=== PATIENT | female | born 1960 | race African-American/Black ===

== ENCOUNTER 2016-06-30 03:46 | Emergency (ER) | payer MEDICARE, OTHER ==
[~2016-06-30 03:46] MED LIST: ASMANEX200 INH; ATARAX50B PO; ATV1 PO; AZACTAM1 IM; AZACTAM1 IV; BEN25 PO; BIO-FREEZE TOP; BIOTIN10 MG PO; BIOTIN5 MG PO; BROVANA15 MCG INH; CARD120 PO; CARD30 PO; CARD60 PO; CENTRUM PO; CIP5 PO; DILT-XR120 MG PO; DULERA 200 MCG/13 GM INH; FLONASE NAS; FLORASTOR250 MG PO; FLOVENT DISK50 MCG INH; FLOVENT110 INH; FLOVENT110 PO; FOLIC ACID800 MCG PO; FOLIC PO; HARD NAILS PO; HYDROCODONE PO; IBU400 PO; IBUDONE1 TA1 PO; IMOD PO; IRON325 MG PO; LEVAQUIN750 MG PO; LIDODERM PATCH T; LIDODERM T; LIDODERM TOP; LIQUID TEARS OPH; MAGNESIUM 500MG OTC PO; MAGNESIUM PO; MEP50TAB PO; METANX PO; MULTIPLE VIT PO; MULTIVIT/MIN PO; MULTIVITAMI1 PO; NEUR300 PO; NEUR600 PO; ORAZINC110 MG PO; PHENERGAN25 MG/ML IV; PR25 PO; PROAIR HFA INH; PROBIOTIC PO; PULRESP.5 INH; SALMON OIL PO; SAMOLINIC PO; SOMATAB PO; SWEEN PO; SWEEN TOP; SYSTAN1 OPH; SYSTANE EYE OPH; SYSTANE OPH; TEARS NATURA OPH; VANCO1P IV; VICOPROFEN 7.5/1 TAB PO; VICOPROFEN OR; VITE PO; Z-PAK PO; ZANAFLEX 4 MG TA4 MG PO; ZINC PO; ZINC220C PO; [UNRECOGNIZED DRUG - OTHER] PO; [UNRECOGNIZED DRUG - OTHER] TOP; [UNRECOGNIZED DRUG - SUPPLY] TOP; [UNRECOGNIZED DRUG - SUPPLY] TOP
[2016-06-30 04:47] LABS: BASOPHILS 0.5 %; BASOPHILS ABSOLUTE 0.03 10/3/uL (0.0-0.16); EOSINOPHILS 3.9 %; EOSINOPHILS ABSOLUTE 0.26 10/3/uL (0.0-0.53); HEMATOCRIT 31.6 % (36.0-48.0); IMMATURE GRANULOCYTES 0.2 %; IMMATURE GRANULOCYTES ABSOLUTE 0.01 10/3/uL (0.0-0.11); LYMPHOCYTES 25.8 %; LYMPHOCYTES ABSOLUTE 1.71 10/3/uL (0.67-4.30); MEAN CORPUS HGB CONC 31.6 g/dL (32.0-36.0); MEAN CORPUSCULAR HEMOGLOB 29.5 pg (26.0-34.0); MEAN PLATELET VOLUME 8.8 fL (9.2-13.0); MONOCYTES 5.7 %; MONOCYTES ABSOLUTE 0.38 10/3/uL (0.21-1.20); NEUTROPHILS 63.9 %; NEUTROPHILS ABSOLUTE 4.24 10/3/uL (2.02-8.40); PLATELET COUNT 215 10/3/uL (150-400); RBC DISTRIBUTION WIDTH 15.3 % (12.0-16.0); RED CELL COUNT 3.39 10/6/uL (4.0-5.6); WHITE BLOOD CELLS 6.6 10/3/uL (4.5-10.5)
[2016-06-30 04:48] LABS: ER CBC TAT 0 Hrs 04 MinsNP; MANUAL DIFF NO %; MEAN CORPUSCULAR VOLUME 93.2 fL (80-100)
[2016-06-30 05:03] LABS: CALCIUM, SERUM 8.4 MG/DL (8.5-10.4); CHLORIDE, SERUM 108 MMOL/L (96-112); CO2 (CARBON DIOXIDE) 26 MMOL/L (24-34); CREATININE 2.14 MG/DL (0.55-1.02); GFR AFRICAN AMERICAN 29 ML/MIN (>=60); GFR NON AFRICAN AMERICAN 25 ML/MIN (>=60); GLUCOSE, SERUM 99 MG/DL (60-99); POTASSIUM, SERUM 4.2 MMOL/L (3.5-5.3); SODIUM, SERUM 142 MMOL/L (135-148)
[2016-06-30 05:04] LABS: BUN (BLOOD UREA NITROGEN) 25 MG/DL (6-23)
== END 2016-06-30 06:10 | disposition home or self-care (01) ==
LOC: ER 03:46
PROVIDERS: Emergency Medicine
DX: F41.9 Anxiety disorder, unspecified (principal); N18.9 Chronic kidney disease, unspecified; J45.909 Unspecified asthma, uncomplicated; J44.9 Chronic obstructive pulmonary disease, unspecified; Z88.5 Allergy status to narcotic agent; Z88.1 Allergy status to other antibiotic agents; Z88.2 Allergy status to sulfonamides; Z88.8 Allergy status to other drugs, medicaments and biological substances; Z88.6 Allergy status to analgesic agent; Z79.899 Other long term (current) drug therapy
CPT/HCPCS: 80048; 85025; 93005; 99285

== ENCOUNTER 2016-07-09 09:19 | Emergency (ER) | payer MEDICARE, OTHER ==
[2016-07-09 09:06] LABS: BASOPHILS 0.3 %; BASOPHILS ABSOLUTE 0.02 10/3/uL (0.0-0.16); EOSINOPHILS 1.6 %; EOSINOPHILS ABSOLUTE 0.12 10/3/uL (0.0-0.53); ER CBC TAT 0 Hrs 05 Mins; HEMATOCRIT 31.8 % (36.0-48.0); HEMOGLOBIN 10.3 g/dL (12.0-16.0); LYMPHOCYTES 20.3 %; LYMPHOCYTES ABSOLUTE 1.55 10/3/uL (0.67-4.30); MEAN CORPUS HGB CONC 32.4 g/dL (32.0-36.0); MEAN CORPUSCULAR HEMOGLOB 29.9 pg (26.0-34.0); MEAN CORPUSCULAR VOLUME 92.2 fL (80-100); MEAN PLATELET VOLUME 9.1 fL (9.2-13.0); MONOCYTES 3.7 %; MONOCYTES ABSOLUTE 0.28 10/3/uL (0.21-1.20); NEUTROPHILS 74.1 %; NEUTROPHILS ABSOLUTE 5.65 10/3/uL (2.02-8.40); PLATELET COUNT 257 10/3/uL (150-400); RED CELL COUNT 3.45 10/6/uL (4.0-5.6); WHITE BLOOD CELLS 7.6 10/3/uL (4.5-10.5)
[2016-07-09 09:07] LABS: MANUAL DIFF NO %
[2016-07-09 09:19] LABS: A/G RATIO 0.5 (0.7-1.9); ALBUMIN 2.7 G/DL (3.5-5.0); ALKALINE PHOSPHATASE 85 U/L (45-117); BUN (BLOOD UREA NITROGEN) 18 MG/DL (6-23); CALCIUM, SERUM 8.4 MG/DL (8.5-10.4); CHLORIDE, SERUM 108 MMOL/L (96-112); CO2 (CARBON DIOXIDE) 23 MMOL/L (24-34); CREATININE 2.07 MG/DL (0.55-1.02); GFR AFRICAN AMERICAN 30 ML/MIN (>=60); GFR NON AFRICAN AMERICAN 26 ML/MIN (>=60); GLUCOSE, SERUM 108 MG/DL (60-99); POTASSIUM, SERUM 4.2 MMOL/L (3.5-5.3); SGOT(AST) 10 U/L (5-40); SGPT(ALT) 8 U/L (5-65); SODIUM, SERUM 141 MMOL/L (135-148); TOTAL BILIRUBIN 0.3 MG/DL (0-1.2); TOTAL PROTEIN 7.7 G/DL (6.0-8.5)
== END 2016-07-09 11:27 | disposition home or self-care (01) ==
LOC: ER 09:19
PROVIDERS: Nurse Practitioner
DX: R10.31 Right lower quadrant pain (principal); R10.32 Left lower quadrant pain; I10 Essential (primary) hypertension; Z88.5 Allergy status to narcotic agent; Z88.1 Allergy status to other antibiotic agents; Z88.2 Allergy status to sulfonamides; Z88.6 Allergy status to analgesic agent; Z88.8 Allergy status to other drugs, medicaments and biological substances; Z79.899 Other long term (current) drug therapy
CPT/HCPCS: 74176; 80053; 81001; 83690; 85025; 87493; 87493-59; 96374; 99285; A9270-GY; J2550

== ENCOUNTER 2016-07-12 06:15 | Day surgery (SDC) | payer MEDICARE, OTHER ==
--- NOTE | ~2016-07-12 | OP ---
Record Of Operation [facility] [address] [place]. [address] NAME: FELA THOMPSON : 58 STATUS : REG [facility] PAT#: [id number] AGE: 55 ADM/REG DATE : 07/12/16 MR#: [id number] REPORT SERV DATE: 07/12/16 DICTATED BY: Alexandra CUEVA DATE: 07/12/16 REPORT STATUS : Draft TRANSCRIBED BY: MODL DATE: 07/12/16 DATE OF PROCEDURE: PREOPERATIVE DIAGNOSIS: Bilateral ureteral obstruction with chronic indwelling double-J stents. POSTOPERATIVE DIAGNOSIS: Bilateral ureteral obstruction with chronic indwelling double-J stents PROCEDURES: Cystoscopy, removal of right double-J stent, right retrograde pyelography, placement of right double-J stent, removal of left double-J stent, left retrograde pyelography, and placement of left double-J stent. SURGEON: Alexandra Cueva M.D. ANESTHESIA: General endotracheal. COMPLICATIONS: None. DRAINS: 1. A 7-Chinese x 22 cm right Contour double-J stent. 2. A 7-Chinese x 22 cm Contour left double-J stent. 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 She has been managed with treatment stent changes for many years. They were last changed by me on 04/09/2016. She had a preoperative urine culture and was given sensitivity-directed antibiotics preoperatively. The risks of bleeding, infection, anesthesia, injury to adjacent organs, and inability to place stent, etc. were discussed. There were no unanswered questions. DESCRIPTION OF PROCEDURE: Under excellent general anesthesia, the patient was prepped and draped in a standard lithotomy position. Cystoscopy was done with expected difficulty due to her fixed pelvis and urethra. Stents were seen emanating from each orifice with typical changes of radiation cystitis. The right double-J stent was grasped, brought to the meatus, and an angled glide wire was fed through it up to the area of the collecting system. The stent was removed and a wire was retrofitted into the cystoscope. The open-ended catheter was advanced and a clear urine drip was noted. I dilutely opacified the collecting system and then placed a 7-Chinese x 26 cm Contour double-J stent which coiled nicely in the renal pelvis and bladder. Similarly, the left double-J stent was brought to the meatus, a wire was inserted through it, and the stent was removed. The wire was retrofitted through an open-ended catheter and the open-ended catheter was advanced to the renal pelvis and surprisingly, there was not any significant purulence in the left renal pelvis. I elected and dilutely opacified and placed a 7-Chinese x 22 cm Contour double-J stent which coiled nicely in the renal pelvis and bladder. I plan to discharge Ms Thompson with the following instructions. Record Of Operation [facility] [address] [place]. [address] NAME: FELA THOMPSON : 58 STATUS : REG [facility] PAT#: [id number] AGE: 55 ADM/REG DATE : 07/12/16 MR#: [id number] REPORT SERV DATE: 07/12/16 DICTATED BY: Alexandra CUEVA DATE: 07/12/16 REPORT STATUS : Draft TRANSCRIBED BY: ONI DATE: 07/12/16 DISCHARGE INSTRUCTIONS: 1. Home today. Plan is to call for any problems. 2. Schedule cysto, bilateral retrograde, bilateral stent exchange in two to three months. MARCELINO/ONI Alexandra Cueva M.D. / [id number] CC: Mando Durham PA-C
[2016-07-12 07:56] LABS: BASOPHILS 0.4 %; BASOPHILS ABSOLUTE 0.02 10/3/uL (0.0-0.16); EOSINOPHILS 5.1 %; EOSINOPHILS ABSOLUTE 0.28 10/3/uL (0.0-0.53); HEMOGLOBIN 9.7 g/dL (12.0-16.0); IMMATURE GRANULOCYTES 0.2 %; IMMATURE GRANULOCYTES ABSOLUTE 0.01 10/3/uL (0.0-0.11); LYMPHOCYTES 28.2 %; LYMPHOCYTES ABSOLUTE 1.55 10/3/uL (0.67-4.30); MEAN CORPUS HGB CONC 32.3 g/dL (32.0-36.0); MEAN CORPUSCULAR HEMOGLOB 29.7 pg (26.0-34.0); MEAN CORPUSCULAR VOLUME 91.7 fL (80-100); MEAN PLATELET VOLUME 9.7 fL (9.2-13.0); MONOCYTES ABSOLUTE 0.33 10/3/uL (0.21-1.20); NEUTROPHILS 60.1 %; PLATELET COUNT 258 10/3/uL (150-400); RBC DISTRIBUTION WIDTH 14.9 % (12.0-16.0); RED CELL COUNT 3.27 10/6/uL (4.0-5.6); WHITE BLOOD CELLS 5.5 10/3/uL (4.5-10.5)
[2016-07-12 07:58] LABS: MANUAL DIFF NO %
[2016-07-12 08:08] LABS: BUN (BLOOD UREA NITROGEN) 22 MG/DL (6-23); CALCIUM, SERUM 8.3 MG/DL (8.5-10.4); CHLORIDE, SERUM 110 MMOL/L (96-112); CO2 (CARBON DIOXIDE) 23 MMOL/L (24-34); CREATININE 2.38 MG/DL (0.55-1.02); GFR AFRICAN AMERICAN 26 ML/MIN (>=60); GFR NON AFRICAN AMERICAN 22 ML/MIN (>=60); GLUCOSE, SERUM 94 MG/DL (60-99); POTASSIUM, SERUM 4.1 MMOL/L (3.5-5.3); SODIUM, SERUM 142 MMOL/L (135-148)
== END 2016-07-12 15:32 | disposition home or self-care (01) ==
LOC: SDC 06:15
PROC: 0T788DZ Dilation of Bilateral Ureters with Intraluminal Device, Via Natural or Artificial Opening Endoscopic (ICD-10-PCS; principal; 2016-07-12 08:45)
PROC: BT141ZZ Fluoroscopy of Kidneys, Ureters and Bladder using Low Osmolar Contrast (ICD-10-PCS; 2016-07-12 08:45)
DX: Z46.6 Encounter for fitting and adjustment of urinary device (principal); N13.1 Hydronephrosis with ureteral stricture, not elsewhere classified; Y84.2 Radiological procedure and radiotherapy as the cause of abnormal reaction of the patient, or of later complication, without mention of misadventure at the time of the procedure; I47.1 Supraventricular tachycardia; J45.909 Unspecified asthma, uncomplicated; G62.9 Polyneuropathy, unspecified; G89.29 Other chronic pain; M25.569 Pain in unspecified knee; D64.9 Anemia, unspecified; F41.9 Anxiety disorder, unspecified; E66.9 Obesity, unspecified; Z68.42 Body mass index [BMI] 45.0-49.9, adult; Z85.41 Personal history of malignant neoplasm of cervix uteri; Z88.0 Allergy status to penicillin; Z88.1 Allergy status to other antibiotic agents; Z88.2 Allergy status to sulfonamides; Z88.5 Allergy status to narcotic agent; Z88.6 Allergy status to analgesic agent; Z88.8 Allergy status to other drugs, medicaments and biological substances; Z91.048 Other nonmedicinal substance allergy status; Z91.013 Allergy to seafood; Z79.899 Other long term (current) drug therapy; Z87.891 Personal history of nicotine dependence; Z98.890 Other specified postprocedural states; Z90.49 Acquired absence of other specified parts of digestive tract; Z87.440 Personal history of urinary (tract) infections; Z86.14 Personal history of Methicillin resistant Staphylococcus aureus infection; Z92.3 Personal history of irradiation; Z92.21 Personal history of antineoplastic chemotherapy
CPT/HCPCS: 74420; 80048; 85025; 93005; C1758; C1769; C2617; J2175; J2250; J2405; J2550; J3010; Q9967

== ENCOUNTER 2016-07-20 18:40 | Inpatient (IN) | payer MEDICARE, OTHER ==
--- NOTE | ~2016-07-20 | HP ---
History And Physical [place] [id number] [facility] [place]. [address] NAME: FELA THOMPSON : 58 STATUS : ADM [facility] PAT#: [id number] AGE: 56 ADM/REG DATE : 07/21/16 MR#: [id number] REPORT SERV DATE: 07/21/16 DICTATED BY: MARCO PETERSEN DATE: 07/21/16 REPORT STATUS : Draft TRANSCRIBED BY: MODL DATE: 07/21/16 DATE OF ADMISSION: 07/21/2016 CHIEF COMPLAINT: Feeling of heart racing in her chest along with chest pain and dizziness. HISTORY OF PRESENT ILLNESS: This is a 56-year-old female with a history of SVT in the past, cervical cancer status post excision, chemotherapy, and radiation therapy followed by radiation cystitis with recurrent urinary tract infections with ESBL E. coli as well followed by Dr. Robi Contreras, who presents to the emergency room at [facility] with the above-mentioned complaint. History is obtained from Ms. Thompson and reviewing data available on the [employer] ([employer]) system. According to Ms. Thompson, she had been in the usual state of health until yesterday in the afternoon when she started having racing of her heart. She knew she had SVT as she has had this in the past and decided to take 2 of her tablets of Cardizem along with an Ativan as this usually is what she does. Even after half an hour to 45 minutes, this offered no relief and she called 911 for help. The patient was subsequently brought to the emergency room here. In the emergency room, indeed she was in supraventricular tachycardia with a rate of 160 per minute. She was given intravenous Cardizem here. She converted to sinus and her vitals were stable. Further workup revealed she had hypomagnesemia and had a urinary tract infection as well. Hospitalist Service is asked to admit her for further evaluation and treatment. At the time of my evaluation, she denied any chest pain, palpitations, or orthopnea. She was much more comfortable. She had a cough, which was essentially nonproductive, not associated with any fevers, chills, night sweats, or weight loss. She has not had any recent falls or loss of consciousness. No history of fevers or chills prior to arrival here. She did have some nausea and vomiting along with persistent diarrhea, which she says she has been having for a long time. No history of hematemesis, hematochezia, or hematuria. No other history of recent travel or exposures other than those mentioned above. PAST MEDICAL HISTORY: Significant for recent ureteral stent replacement by Dr. Robi Contreras done on 07/12/2016. She has history of supraventricular tachycardia, atrial fibrillation, history of chronic kidney disease stage 3, COPD, hypertension, and cervical cancer in 2008, status post excision followed by chemo and radiation therapy. She also had radiation cystitis following this with recurrent urinary tract infections. She also has a history of Clostridium difficile colitis and gastroesophageal reflux disease. SOCIAL HISTORY: She does not smoke, drink, or use recreational drugs. FAMILY HISTORY: Noncontributory. MEDICATIONS: At home were reviewed by me in the chart today and reordered by me. History And Physical [address] [address] NAME: FELA THOMPSON : 58 STATUS : ADM [facility] PAT#: [id number] AGE: 56 ADM/REG DATE : 07/21/16 MR#: [id number] REPORT SERV DATE: 07/21/16 DICTATED BY: MARCO PETERSEN DATE: 07/21/16 REPORT STATUS : Draft TRANSCRIBED BY: ONI DATE: 07/21/16 REVIEW OF SYSTEMS: As in history of present illness. All other systems were reviewed in detail and quite unremarkable. PHYSICAL EXAMINATION: GENERAL: This is a pleasant 56-year-old, not in any acute distress. HEENT: Head is atraumatic, normocephalic. She is alert, awake, oriented to time, place, and person. Pupils are equal, reacting to light and accommodating. External ocular muscles are intact. Membranes are moist and pink. Sclerae are nonicteric. NECK: Supple with no jugular venous distention, lymphadenopathy, or thyromegaly. LUNGS: Clear to auscultation with no wheezes, rubs, or crackles. HEART: Heart sounds were regular with no murmurs, rubs, or gallops. ABDOMEN: Soft, nontender. Bowel sounds are present. No organomegaly. EXTREMITIES: Showed no cyanosis, clubbing, or edema. NEUROLOGIC: Grossly intact. No focal sensory or motor deficits. Higher functions appeared intact. Gait was not examined. VITAL SIGNS: Her vital signs today showed a temperature of 98.0, pulse 72, respirations 18 a minute, and blood pressure was 114/78 upon arrival. Oxygen saturations were 95%, breathing 2-3 L via nasal cannula. LABORATORY DATA: Reviewed on the [employer] system showed a sodium of 141, potassium 3.7, chloride 107, CO2 of 33, BUN was 25 with a creatinine of 2.17, which is about her baseline. Blood glucose was 101. Her magnesium was low at 1.5 and liver numbers appeared within normal limits. Troponin today was 0.02, and CBC showed a white blood cell count of 6400, hemoglobin was 11.3, and hematocrit 34.9 at her baseline. Platelet count was 301,000. Urinalysis showed large blood with large leukocyte esterase, nitrite was positive with 19 rbc's and greater than 182 wbc's. There was moderate bacteria as well. There is no chest x ray performed in the ER today. A 12-lead EKG done in the emergency room was reviewed and interpreted by me. There is supraventricular tachycardia, rate of 160 per minute. IMPRESSION: 1. Supraventricular tachycardia, resolved after treatment in the ER. 2. Urinary tract infection. 3. Hypomagnesemia. 4. Recent ureteral stent replacement by Dr. Robi Contreras, her urologist. 5. Atrial fibrillation. 6. Chronic kidney disease stage 3. 7. Chronic obstructive pulmonary disease. 8. Hypertension. 9. History of radiation cystitis following treatment for cervical cancer. 10.Gastroesophageal reflux disease. PLAN: We will admit Ms. Thompson to the Hospitalist Service with telemetry for a 24-hour observation. We will start her on empiric IV antibiotics after cultures are drawn. We will start her on aztreonam at this time and consult Infectious Disease to help with choice of antibiotics as she seems to be allergic to most of them. She was successfully converted to sinus rhythm with Cardizem intravenously in the ER. We will continue to monitor this History And Physical [address] [address] NAME: FELA THOMPSON : 58 STATUS : ADM [facility] PAT#: [id number] AGE: 56 ADM/REG DATE : 07/21/16 MR#: [id number] REPORT SERV DATE: 07/21/16 DICTATED BY: MARCO PETERSEN DATE: 07/21/16 REPORT STATUS : Draft TRANSCRIBED BY: ONI DATE: 07/21/16 closely. We will also replace magnesium, and continue to monitor chemistry, other electrolytes and replace as needed. We will maximize the bronchodilator treatments, and continue supplemental oxygen therapy and start her on an unfractionated heparin for DVT prophylaxis while she is here. I have discussed the above plans with the patient. Her questions were answered. She is agreeable to the above recommendations. Hospitalist Service will be following her during her stay here. /ONI Marco Petersen M.D. / [id number] CC: Damon Otto M.D.
--- NOTE | ~2016-07-20 | DS ---
Discharge Summary [facility] [address] [place]. [address] NAME: FELA THOMPSON : 58 STATUS : DIS IN PAT#: [id number] AGE: 56 ADM/REG DATE : 07/21/16 MR#: [id number] REPORT SERV DATE: 07/29/16 DICTATED BY: OWEN NAVA DATE: 07/28/16 REPORT STATUS : Draft TRANSCRIBED BY: MODL DATE: 07/28/16 ADMISSION DATE: 07/21/2016 DISCHARGE DATE: 07/28/2016 DISCHARGE DIAGNOSES: 1. Supraventricular tachycardia. 2. Morbid obesity. 3. Chronic kidney disease. 4. Cervical cancer, status post excision and chemotherapy in the past. 5. Recurrent urinary tract infection. 6. Bilateral double-J stents for chronic stenosis of ureters due to scars and chemotherapy. 7. Gastroesophageal reflux. CONSULTANTS DURING THIS HOSPITALIZATION: Dr. Santi Duvall of Infectious Disease. INVASIVE PROCEDURES DONE DURING THIS HOSPITALIZATION: None. BRIEF HISTORY OF PRESENT ILLNESS: The patient is a 56-year-old female with multiple comorbidities, was triaged in the emergency room on 07/20/2016 at 1739 hours with complaints of cardiac dysrhythmia and SVT, so she was admitted. For detailed history and physical exam, please see note dictated by Dr. Marco Bragg on 07/21/2016. HOSPITAL COURSE: After being admitted to the hospital, this patient was cared for by Dr. Levi Rodriguez. Please refer to interim summary dictated by Dr. Rodriguez on 07/26/2016. I took over this patient's care on 07/27/2016. This patient was doing fairly well. Her SVT had resolved. Her hypomagnesemia had been corrected. Her creatinine was stable around 2.0. She was feeling well enough and she wanted to go home. Infectious Disease had signed off. There was no evidence of any infection and it was most likely colonization, so no further antibiotic treatments were given. This patient had many complaints. She had been noncompliant in the hospital regarding her lab draws and her x-rays. She was quite never happy with our nursing staff and our care, but medically, she remained stable and is being discharged in stable condition. DISCHARGE DISPOSITION: Home. DISCHARGE ACTIVITY: As tolerated. DISCHARGE DIET: Low-sodium diet. DISCHARGE MEDICATIONS: Florastor 250 mg twice daily; Orazinc 220 mg per home regimen; Flovent HFA two puffs twice daily; fluconazole 200 mg p.o. q.96 hours x2 doses, to be started on 07/21/2016, that has been completed; Ativan 1 mg p.o. daily p.r.n.; lidocaine 5% patch, two patches topically to each knee; Flonase two sprays each nostril p.r.n.; aloe vera body wash; diltiazem 30 mg p.o. three times daily p.r.n. for symptoms of SVT; hydrocodone 10 mg three times daily scheduled; Phenergan 25 mg every four hours p.r.n. for nausea, Discharge Summary [address] [address] NAME: FELA THOMPSON : 58 STATUS : DIS IN PAT#: [id number] AGE: 56 ADM/REG DATE : 07/21/16 MR#: [id number] REPORT SERV DATE: 07/29/16 DICTATED BY: OWEN NAVA DATE: 07/28/16 REPORT STATUS : Draft TRANSCRIBED BY: ONI DATE: 07/28/16 vomiting; centrum multivitamins; and biotin for hard nails. DISCHARGE FOLLOWUP: With primary care physician in one week. With Dr. Contreras as scheduled previously. More than 30 minutes spent planning this patient's discharge, reconciling medications, arranging proper discharge and documenting this discharge. KIRILL/ONI Owen Nava M.D. / [id number] CC: Mando Hernandez M.D. Wesley S. Thompson, DO
--- NOTE | ~2016-07-20 | IDS ---
Interim Discharge Summary [place] [address] [place]. [address] NAME: FELA THOMPSON : 58 STATUS : ADM IN [facility]#: [id number] AGE: 56 ADM/REG DATE : 07/21/16 MR#: [id number] REPORT SERV DATE: 07/26/16 DICTATED BY: LUIS A RUIZ DATE: 07/26/16 REPORT STATUS : Draft TRANSCRIBED BY: MODL DATE: 07/26/16 ADMISSION DATE: 07/21/2016 DISCHARGE DATE: 07/26/2016 DISCHARGE/TRANSFER SUBJECTIVE: The patient wants go [facility] due to debility. OBJECTIVE: VITAL: 108/66, 95% on room air, 18 respirations, 71 pulse, 97.8 temp. GENERAL: No acute distress. HEENT: PERRLA. No scleral icterus. CARDIOVASCULAR: Regular rate and rhythm. No murmur. RESPIRATORY: Decreased breath sounds bibasilarly. No wheezes. No crackles. ABDOMEN: Obese, soft, nontender, nondistended. EXTREMITIES: No edema. No ecchymosis. NEURO: GCS 15. A and O x4. LABORATORY DATA: Today, she has a white count 5.9 from 5.4 from 7.0, 8.9 from 8.9 from 9.0, platelets 263,000 from 266,000. Procalcitonin less than 0.05 x3. Sodium 142, potassium 4.8, chloride 107, bicarb 28, BUN 39, creatinine 1.84 from 2.27, mag 1.7. IMPRESSION/RECOMMENDATION/ASSESSMENT AND PLAN/INTERIM DISCHARGE SUMMARY: A 56-year-old, -Kitt[place] female with known history of obesity; atrial fibrillation; Supraventricular tachycardia in the past; cervical cancer status post excision, chemotherapy, or radiation; radiation cystitis; recurrent urinary tract infraction; history of extended spectrum beta- lactamase, sees Dr. Contreras for urologic needs; known history of chronic kidney disease as well; history of Clostridium difficile; gastroesophageal reflux disease. The patient comes in with recent ureteral stent replacement bilaterally by Dr. Contreras on 07/12/2016. The patient comes in with significant Supraventricular tachycardia. The patient took two of her Cardizem tablets prior to coming into the hospital. She was given IV Cardizem here. The patient was found to have significant pyuria. Her white count is normal. Procalcitonin is negative x3. The patient wants to see ID. Infectious Disease was consulted. Thought to be more likely colonization. The patient demanded to have aztreonam, which we did for three days, then discontinued. The patient should follow up with Dr. Contreras, possible removal of the stents if possible. The patient has some hypotension likely due to Ativan being given. She may have some relative adrenal insufficiency, but unlikely given now she is normotensive. The patient has been significantly debilitated, lying in bed mostly as osteoarthritis pain. We will send to facility, complains some abdominal distention and as a result, got a KUB, is nonobstructive likely her SVT initially was due to hypomagnesemia for which she was 1.5 initially and was replaced. Would follow up with her primary care doctor regarding her osteoarthritis in her knees likely needs significant weight loss therapy to reduce her debility. Her blood cultures, no growth to date. Hopefully, she can be discharged tomorrow to [facility]. The patient has had some noncompliant behavior here. She refused CT, she for her abdominal pain initially . Also refused lab draws, was abusive to some staff per Interim Discharge Summary [address] [address] NAME: FELA THOMPSON : 58 STATUS : ADM IN [facility]#: [id number] AGE: 56 ADM/REG DATE : 07/21/16 MR#: [id number] REPORT SERV DATE: 07/26/16 DICTATED BY: LUIS A RUIZ DATE: 07/26/16 REPORT STATUS : Draft TRANSCRIBED BY: MODL DATE: 07/26/16 reports. I never observed that directly. All questions were answered. It took well over 30 minutes to do. LIZ/ONI Luis A Ruiz DO / [id number] CC: Luis A Ruiz, DO
[2016-07-20 20:21] LABS: BASOPHILS 0.5 %; BASOPHILS ABSOLUTE 0.03 10/3/uL (0.0-0.16); EOSINOPHILS ABSOLUTE 0.32 10/3/uL (0.0-0.53); HEMOGLOBIN 11.3 g/dL (12.0-16.0); IMMATURE GRANULOCYTES 0.2 %; IMMATURE GRANULOCYTES ABSOLUTE 0.01 10/3/uL (0.0-0.11); LYMPHOCYTES 33.2 %; LYMPHOCYTES ABSOLUTE 2.12 10/3/uL (0.67-4.30); MEAN CORPUS HGB CONC 32.4 g/dL (32.0-36.0); MEAN CORPUSCULAR HEMOGLOB 30.2 pg (26.0-34.0); MEAN CORPUSCULAR VOLUME 93.3 fL (80-100); MEAN PLATELET VOLUME 9.1 fL (9.2-13.0); MONOCYTES ABSOLUTE 0.38 10/3/uL (0.21-1.20); NEUTROPHILS 55.1 %; NEUTROPHILS ABSOLUTE 3.52 10/3/uL (2.02-8.40); PLATELET COUNT 301 10/3/uL (150-400); RBC DISTRIBUTION WIDTH 14.8 % (12.0-16.0); RED CELL COUNT 3.74 10/6/uL (4.0-5.6); WHITE BLOOD CELLS 6.4 10/3/uL (4.5-10.5)
[2016-07-20 20:22] LABS: HEMATOCRIT 34.9 % (36.0-48.0); MANUAL DIFF NO %
[2016-07-20 20:38] LABS: BUN (BLOOD UREA NITROGEN) 25 MG/DL (6-23); CALCIUM, SERUM 8.2 MG/DL (8.5-10.4); CHEST PAIN PROFILE TAT 0 Hrs 21 Mins; CHLORIDE, SERUM 107 MMOL/L (96-112); CO2 (CARBON DIOXIDE) 23 MMOL/L (24-34); CREATININE 2.17 MG/DL (0.55-1.02); GFR AFRICAN AMERICAN 28 ML/MIN (>=60); GFR NON AFRICAN AMERICAN 24 ML/MIN (>=60); GLUCOSE, SERUM 101 MG/DL (60-99); POTASSIUM, SERUM 3.7 MMOL/L (3.5-5.3); SODIUM, SERUM 141 MMOL/L (135-148); TROPONIN I <0.02 NG/ML (<0.05)
[2016-07-20 21:43] LABS: PARTIAL THROMBO TIME 31.1 SEC (22.5-37.2)
[2016-07-20 21:46] LABS: INTERNATIONAL NORMAL RATI 1.1 UNITS (-); PROTIME (NOT ORD) 14.3 SEC (12.0-14.5)
[2016-07-20 23:17] LABS: ASCORBIC ACID (UR NOT ORDER) NEG (NEG); BILIRUBIN, URINE NEGATIVE (NEG); ER URINALYSIS TAT 0 Hrs 00 Mins; KETONE, URINE NEGATIVE (NEG); LEUKOCYTE ESTERASE(NOT OR LARGE (NEG); NITRITE (URINE) POS (NEG); WBC (NOT ORDERED) (RFLEX) > 182 (0-5)
[2016-07-21] MEDS ORDERED: FLOVENT44 INH (00:22)
[2016-07-21] MEDS ORDERED: FLUCON2 PO (00:23)
[2016-07-21] MEDS ORDERED: ATV1 PO (00:23)
[2016-07-21] MEDS ORDERED: LIDODERM TOP (00:24)
[2016-07-21] MEDS ORDERED: FLONASE NAS (00:24)
[2016-07-21] MEDS ORDERED: HYDROCODONE 10MG PO (00:25)
[2016-07-21] MEDS ORDERED: [UNRECOGNIZED DRUG - OTHER] TOP (00:25)
[2016-07-21] MEDS ORDERED: CARD30 PO (00:25)
[2016-07-21] MEDS ORDERED: PR25 PO (00:26)
[2016-07-21 05:10] LABS: PROCALCITONIN <0.05 ng/mL (<0.5)
[2016-07-21] MEDS ORDERED: FLORASTOR250 MG PO (06:04)
[2016-07-21 11:06] LABS: BUN (BLOOD UREA NITROGEN) 30 MG/DL (6-23); CALCIUM, SERUM 7.9 MG/DL (8.5-10.4); CHLORIDE, SERUM 108 MMOL/L (96-112); CO2 (CARBON DIOXIDE) 24 MMOL/L (24-34); CREATININE 2.13 MG/DL (0.55-1.02); GFR AFRICAN AMERICAN 29 ML/MIN (>=60); GFR NON AFRICAN AMERICAN 25 ML/MIN (>=60); GLUCOSE, SERUM 103 MG/DL (60-99); PHOSPHORUS, SERUM 3.9 MG/DL (2.5-4.5); POTASSIUM, SERUM 4.4 MMOL/L (3.5-5.3); SODIUM, SERUM 141 MMOL/L (135-148)
[2016-07-21 11:11] LABS: BASOPHILS 0.5 %; BASOPHILS ABSOLUTE 0.03 10/3/uL (0.0-0.16); EOSINOPHILS 4.9 %; EOSINOPHILS ABSOLUTE 0.28 10/3/uL (0.0-0.53); HEMATOCRIT 32.5 % (36.0-48.0); HEMOGLOBIN 10.1 g/dL (12.0-16.0); IMMATURE GRANULOCYTES 0.2 %; IMMATURE GRANULOCYTES ABSOLUTE 0.01 10/3/uL (0.0-0.11); LYMPHOCYTES 36.7 %; LYMPHOCYTES ABSOLUTE 2.11 10/3/uL (0.67-4.30); MANUAL DIFF NO %; MEAN CORPUS HGB CONC 31.1 g/dL (32.0-36.0); MEAN CORPUSCULAR HEMOGLOB 29.5 pg (26.0-34.0); MEAN PLATELET VOLUME 9.8 fL (9.2-13.0); MONOCYTES ABSOLUTE 0.52 10/3/uL (0.21-1.20); NEUTROPHILS 48.7 %; PLATELET COUNT 306 10/3/uL (150-400); RBC DISTRIBUTION WIDTH 15.1 % (12.0-16.0); RED CELL COUNT 3.42 10/6/uL (4.0-5.6); WHITE BLOOD CELLS 5.8 10/3/uL (4.5-10.5)
[2016-07-21] MEDS ORDERED: ZINC220C PO (13:13)
[2016-07-21] MEDS ORDERED: CENTRUM PO (13:13)
[2016-07-21] MEDS ORDERED: HARD NAILS PO (13:14)
[2016-07-22 07:19] LABS: BASOPHILS 0.9 %; BASOPHILS ABSOLUTE 0.05 10/3/uL (0.0-0.16); EOSINOPHILS 6.9 %; EOSINOPHILS ABSOLUTE 0.39 10/3/uL (0.0-0.53); HEMATOCRIT 28.6 % (36.0-48.0); IMMATURE GRANULOCYTES 0.2 %; IMMATURE GRANULOCYTES ABSOLUTE 0.01 10/3/uL (0.0-0.11); LYMPHOCYTES 36.6 %; LYMPHOCYTES ABSOLUTE 2.06 10/3/uL (0.67-4.30); MANUAL DIFF NO %; MEAN CORPUS HGB CONC 31.5 g/dL (32.0-36.0); MEAN CORPUSCULAR HEMOGLOB 29.9 pg (26.0-34.0); MEAN PLATELET VOLUME 9.3 fL (9.2-13.0); MONOCYTES 6.9 %; MONOCYTES ABSOLUTE 0.39 10/3/uL (0.21-1.20); NEUTROPHILS 48.5 %; NEUTROPHILS ABSOLUTE 2.73 10/3/uL (2.02-8.40); PLATELET COUNT 253 10/3/uL (150-400); RBC DISTRIBUTION WIDTH 15.5 % (12.0-16.0); RED CELL COUNT 3.01 10/6/uL (4.0-5.6); WHITE BLOOD CELLS 5.6 10/3/uL (4.5-10.5)
[2016-07-22 07:32] LABS: BUN (BLOOD UREA NITROGEN) 35 MG/DL (6-23); CHLORIDE, SERUM 109 MMOL/L (96-112); CO2 (CARBON DIOXIDE) 23 MMOL/L (24-34); CREATININE 2.24 MG/DL (0.55-1.02); GFR AFRICAN AMERICAN 27 ML/MIN (>=60); GFR NON AFRICAN AMERICAN 24 ML/MIN (>=60); GLUCOSE, SERUM 96 MG/DL (60-99); PHOSPHORUS, SERUM 3.1 MG/DL (2.5-4.5); POTASSIUM, SERUM 4.8 MMOL/L (3.5-5.3); SODIUM, SERUM 141 MMOL/L (135-148)
[2016-07-23 08:49] LABS: BASOPHILS 0.3 %; BASOPHILS ABSOLUTE 0.02 10/3/uL (0.0-0.16); EOSINOPHILS 5.2 %; EOSINOPHILS ABSOLUTE 0.36 10/3/uL (0.0-0.53); IMMATURE GRANULOCYTES 0.1 %; IMMATURE GRANULOCYTES ABSOLUTE 0.01 10/3/uL (0.0-0.11); LYMPHOCYTES 23.9 %; LYMPHOCYTES ABSOLUTE 1.67 10/3/uL (0.67-4.30); MEAN CORPUS HGB CONC 32.1 g/dL (32.0-36.0); MEAN CORPUSCULAR VOLUME 93.3 fL (80-100); MEAN PLATELET VOLUME 9.2 fL (9.2-13.0); MONOCYTES 4.7 %; MONOCYTES ABSOLUTE 0.33 10/3/uL (0.21-1.20); NEUTROPHILS 65.8 %; NEUTROPHILS ABSOLUTE 4.59 10/3/uL (2.02-8.40); PLATELET COUNT 246 10/3/uL (150-400); RBC DISTRIBUTION WIDTH 15.2 % (12.0-16.0)
[2016-07-23 08:51] LABS: MANUAL DIFF NO %
[2016-07-23 09:03] LABS: BUN (BLOOD UREA NITROGEN) 39 MG/DL (6-23); CHLORIDE, SERUM 109 MMOL/L (96-112); CO2 (CARBON DIOXIDE) 25 MMOL/L (24-34); CREATININE 2.14 MG/DL (0.55-1.02); GFR AFRICAN AMERICAN 29 ML/MIN (>=60); GFR NON AFRICAN AMERICAN 25 ML/MIN (>=60); GLUCOSE, SERUM 89 MG/DL (60-99); PHOSPHORUS, SERUM 3.3 MG/DL (2.5-4.5); POTASSIUM, SERUM 4.7 MMOL/L (3.5-5.3); SODIUM, SERUM 143 MMOL/L (135-148)
[2016-07-23 09:49] LABS: PROCALCITONIN <0.05 ng/mL (<0.5)
[2016-07-24 16:39] LABS: BASOPHILS 0.6 %; BASOPHILS ABSOLUTE 0.03 10/3/uL (0.0-0.16); EOSINOPHILS 8.1 %; EOSINOPHILS ABSOLUTE 0.44 10/3/uL (0.0-0.53); HEMATOCRIT 28.4 % (36.0-48.0); HEMOGLOBIN 8.9 g/dL (12.0-16.0); IMMATURE GRANULOCYTES 0.2 %; IMMATURE GRANULOCYTES ABSOLUTE 0.01 10/3/uL (0.0-0.11); LYMPHOCYTES 33.6 %; LYMPHOCYTES ABSOLUTE 1.82 10/3/uL (0.67-4.30); MANUAL DIFF NO %; MEAN CORPUS HGB CONC 31.3 g/dL (32.0-36.0); MEAN CORPUSCULAR HEMOGLOB 29.5 pg (26.0-34.0); MEAN PLATELET VOLUME 9.6 fL (9.2-13.0); MONOCYTES 6.1 %; MONOCYTES ABSOLUTE 0.33 10/3/uL (0.21-1.20); NEUTROPHILS 51.4 %; NEUTROPHILS ABSOLUTE 2.79 10/3/uL (2.02-8.40); PLATELET COUNT 266 10/3/uL (150-400); RBC DISTRIBUTION WIDTH 15.4 % (12.0-16.0); RED CELL COUNT 3.02 10/6/uL (4.0-5.6); WHITE BLOOD CELLS 5.4 10/3/uL (4.5-10.5)
[2016-07-24 16:50] LABS: BUN (BLOOD UREA NITROGEN) 40 MG/DL (6-23); CHLORIDE, SERUM 109 MMOL/L (96-112); CO2 (CARBON DIOXIDE) 28 MMOL/L (24-34); CREATININE 2.27 MG/DL (0.55-1.02); GFR AFRICAN AMERICAN 27 ML/MIN (>=60); GFR NON AFRICAN AMERICAN 23 ML/MIN (>=60); GLUCOSE, SERUM 106 MG/DL (60-99); PHOSPHORUS, SERUM 2.9 MG/DL (2.5-4.5); POTASSIUM, SERUM 4.6 MMOL/L (3.5-5.3); SODIUM, SERUM 143 MMOL/L (135-148)
[2016-07-26 08:03] LABS: BASOPHILS 0.3 %; BASOPHILS ABSOLUTE 0.02 10/3/uL (0.0-0.16); EOSINOPHILS 7.3 %; EOSINOPHILS ABSOLUTE 0.43 10/3/uL (0.0-0.53); HEMATOCRIT 28.1 % (36.0-48.0); HEMOGLOBIN 8.9 g/dL (12.0-16.0); IMMATURE GRANULOCYTES 0.2 %; IMMATURE GRANULOCYTES ABSOLUTE 0.01 10/3/uL (0.0-0.11); LYMPHOCYTES 29.8 %; LYMPHOCYTES ABSOLUTE 1.75 10/3/uL (0.67-4.30); MANUAL DIFF NO %; MEAN CORPUS HGB CONC 31.7 g/dL (32.0-36.0); MEAN CORPUSCULAR HEMOGLOB 29.8 pg (26.0-34.0); MEAN PLATELET VOLUME 9.3 fL (9.2-13.0); MONOCYTES 6.5 %; MONOCYTES ABSOLUTE 0.38 10/3/uL (0.21-1.20); NEUTROPHILS 55.9 %; NEUTROPHILS ABSOLUTE 3.28 10/3/uL (2.02-8.40); PLATELET COUNT 263 10/3/uL (150-400); RBC DISTRIBUTION WIDTH 15.5 % (12.0-16.0); RED CELL COUNT 2.99 10/6/uL (4.0-5.6); WHITE BLOOD CELLS 5.9 10/3/uL (4.5-10.5)
[2016-07-26 08:28] LABS: BUN (BLOOD UREA NITROGEN) 39 MG/DL (6-23); CALCIUM, SERUM 8.2 MG/DL (8.5-10.4); CHLORIDE, SERUM 107 MMOL/L (96-112); CO2 (CARBON DIOXIDE) 28 MMOL/L (24-34); CREATININE 1.84 MG/DL (0.55-1.02); GFR AFRICAN AMERICAN 35 ML/MIN (>=60); GFR NON AFRICAN AMERICAN 30 ML/MIN (>=60); POTASSIUM, SERUM 4.8 MMOL/L (3.5-5.3); SODIUM, SERUM 142 MMOL/L (135-148)
[2016-07-26 08:32] LABS: GLUCOSE, SERUM 81 MG/DL (60-99)
[2016-07-27 11:04] LABS: BASOPHILS 0.5 %; BASOPHILS ABSOLUTE 0.03 10/3/uL (0.0-0.16); EOSINOPHILS ABSOLUTE 0.44 10/3/uL (0.0-0.53); HEMATOCRIT 28.3 % (36.0-48.0); LYMPHOCYTES 31.1 %; LYMPHOCYTES ABSOLUTE 1.71 10/3/uL (0.67-4.30); MEAN CORPUS HGB CONC 31.8 g/dL (32.0-36.0); MEAN CORPUSCULAR HEMOGLOB 29.8 pg (26.0-34.0); MEAN CORPUSCULAR VOLUME 93.7 fL (80-100); MEAN PLATELET VOLUME 9.4 fL (9.2-13.0); MONOCYTES 6.2 %; MONOCYTES ABSOLUTE 0.34 10/3/uL (0.21-1.20); NEUTROPHILS 54.2 %; NEUTROPHILS ABSOLUTE 2.98 10/3/uL (2.02-8.40); PLATELET COUNT 263 10/3/uL (150-400); RBC DISTRIBUTION WIDTH 15.5 % (12.0-16.0); RED CELL COUNT 3.02 10/6/uL (4.0-5.6); WHITE BLOOD CELLS 5.5 10/3/uL (4.5-10.5)
[2016-07-27 11:05] LABS: MANUAL DIFF NO %
[2016-07-27 11:21] LABS: CALCIUM, SERUM 8.2 MG/DL (8.5-10.4); CHLORIDE, SERUM 108 MMOL/L (96-112); CO2 (CARBON DIOXIDE) 28 MMOL/L (24-34); GFR AFRICAN AMERICAN 30 ML/MIN (>=60); GFR NON AFRICAN AMERICAN 25 ML/MIN (>=60); POTASSIUM, SERUM 4.2 MMOL/L (3.5-5.3); SODIUM, SERUM 142 MMOL/L (135-148)
[2016-07-27 11:22] LABS: BUN (BLOOD UREA NITROGEN) 44 MG/DL (6-23); GLUCOSE, SERUM 99 MG/DL (60-99)
== END 2016-07-28 10:26 | disposition home or self-care (01) | DRG 309 ==
LOC: ER 18:40 → CDU1 07-21 01:56 → 6NO 07-23 19:33
PROVIDERS: Emergency Medicine; Internal Medicine; Internal Medicine Pulmonary Disease
DX: I47.1 Supraventricular tachycardia (principal); Z68.43 Body mass index [BMI] 50.0-59.9, adult; N18.3 Chronic kidney disease, stage 3 (moderate); N30.40 Irradiation cystitis without hematuria; E83.42 Hypomagnesemia; I48.91 Unspecified atrial fibrillation; K21.9 Gastro-esophageal reflux disease without esophagitis; J44.9 Chronic obstructive pulmonary disease, unspecified; I12.9 Hypertensive chronic kidney disease with stage 1 through stage 4 chronic kidney disease, or unspecified chronic kidney disease; E66.01 Morbid (severe) obesity due to excess calories; Z85.41 Personal history of malignant neoplasm of cervix uteri; Z90.710 Acquired absence of both cervix and uterus; Z92.21 Personal history of antineoplastic chemotherapy; Z87.440 Personal history of urinary (tract) infections; Z92.3 Personal history of irradiation; Z22.39 Carrier of other specified bacterial diseases
CPT/HCPCS: 74000; 80048; 81001; 82533; 83605; 83735; 84100; 84145; 84484; 85025; 85610; 85730; 87040; 87077; 87086; 87186; 93005; 93306; 96374; 97161-GP; 97530-GP; 99285; A9270-GY; G8978-CM-GP; G8979-CM-GP; G8980-CL-GP

== ENCOUNTER 2016-07-30 08:33 | Emergency (ER) | payer MEDICARE, OTHER ==
[~2016-07-30 08:33] MED LIST changes: +FLOVENT44 INH; +FLUCON2 PO; +HYDROCODONE 10MG PO; +[UNRECOGNIZED DRUG - OTHER] TOP
[2016-07-30 11:49] LABS: BASOPHILS 0.3 %; BASOPHILS ABSOLUTE 0.02 10/3/uL (0.0-0.16); EOSINOPHILS 3.9 %; EOSINOPHILS ABSOLUTE 0.25 10/3/uL (0.0-0.53); ER CBC TAT 0 Hrs 03 Mins; HEMOGLOBIN 10.1 g/dL (12.0-16.0); IMMATURE GRANULOCYTES 0.2 %; IMMATURE GRANULOCYTES ABSOLUTE 0.01 10/3/uL (0.0-0.11); LYMPHOCYTES 26.2 %; LYMPHOCYTES ABSOLUTE 1.68 10/3/uL (0.67-4.30); MEAN CORPUS HGB CONC 32.1 g/dL (32.0-36.0); MEAN CORPUSCULAR HEMOGLOB 29.5 pg (26.0-34.0); MEAN CORPUSCULAR VOLUME 92.1 fL (80-100); MEAN PLATELET VOLUME 8.9 fL (9.2-13.0); MONOCYTES 5.1 %; MONOCYTES ABSOLUTE 0.33 10/3/uL (0.21-1.20); NEUTROPHILS 64.3 %; NEUTROPHILS ABSOLUTE 4.12 10/3/uL (2.02-8.40); PLATELET COUNT 244 10/3/uL (150-400); RED CELL COUNT 3.42 10/6/uL (4.0-5.6); WHITE BLOOD CELLS 6.4 10/3/uL (4.5-10.5)
[2016-07-30 11:51] LABS: HEMATOCRIT 31.5 % (36.0-48.0); MANUAL DIFF NO %
[2016-07-30 11:58] LABS: INTERNATIONAL NORMAL RATI 1.2 UNITS (-); PARTIAL THROMBO TIME 33.1 SEC (22.5-37.2); PROTIME (NOT ORD) 14.6 SEC (12.0-14.5)
[2016-07-30 12:06] LABS: CALCIUM, SERUM 8.2 MG/DL (8.5-10.4); CHEST PAIN PROFILE TAT 0 Hrs 20 Mins; CHLORIDE, SERUM 106 MMOL/L (96-112); CO2 (CARBON DIOXIDE) 26 MMOL/L (24-34); GFR AFRICAN AMERICAN 36 ML/MIN (>=60); GFR NON AFRICAN AMERICAN 31 ML/MIN (>=60); GLUCOSE, SERUM 91 MG/DL (60-99); POTASSIUM, SERUM 4.4 MMOL/L (3.5-5.3); SODIUM, SERUM 141 MMOL/L (135-148); TROPONIN I <0.02 NG/ML (<0.05)
[2016-07-30 12:08] LABS: BUN (BLOOD UREA NITROGEN) 32 MG/DL (6-23)
== END 2016-07-30 12:55 | disposition home or self-care (01) ==
LOC: ER 08:33
PROVIDERS: Nurse Practitioner Family
DX: R00.2 Palpitations (principal); J45.909 Unspecified asthma, uncomplicated; N18.9 Chronic kidney disease, unspecified; K21.9 Gastro-esophageal reflux disease without esophagitis; Z88.2 Allergy status to sulfonamides; Z88.8 Allergy status to other drugs, medicaments and biological substances; Z91.013 Allergy to seafood; Z79.899 Other long term (current) drug therapy
CPT/HCPCS: 71010; 80048; 83690; 83735; 83880; 84484; 85025; 85610; 85730; 93005; 96374; 96376; 99285

== ENCOUNTER 2016-09-23 09:10 | Inpatient (IN) | payer MEDICARE, OTHER ==
--- NOTE | ~2016-09-23 | IDS ---
Interim Discharge Summary [facility] [address] [place]. [address] NAME: FELA THOMPSON : 58 STATUS : ADM IN PAT#: [id number] AGE: 56 ADM/REG DATE : 09/23/16 MR#: [id number] REPORT SERV DATE: 09/27/16 DICTATED BY: LEVON LYNN DATE: 09/27/16 REPORT STATUS : Draft TRANSCRIBED BY: MODL DATE: 09/27/16 ADMISSION DATE: 09/23/2016 DISCHARGE DATE: 09/27/2016 Date that I will be transferring this patient to my colleague is 09/27/2016. CONDITION: Condition of the patient so far is stable. DIAGNOSES: As follows: 1. Urinary tract infection with urine culture positive for E. Coli, however E. coli is not ESBL E. coli. Even though, bacteria is sensitive to cephalosporins and also quinolones, the patient is allergic to both. The patient also states that she has a very sensitive stomach and cannot take oral antibiotics. Hence, the only antibiotic that she can take as of now that can target the bacteria is aztreonam. Hence, the patient is on IV aztreonam 1 g every eight hours and this was begun on 09/23/2016, and the plan is to complete a seven day course at least of this IV aztreonam. Other conditions that are chronic and stable in this patient include the followin. Chronic obstructive lung disease. 2. Morbid obesity. 3. History of cervical cancer, status post surgery and status post radiation therapy. 4. Chronic neuropathy in both legs causing her to have extreme difficulty with ambulation. In combination with the neuropathy and the body habitus, the patient is not very mobile at all. She transfers herself to a wheelchair at home and is wheelchair bound. 5. Multiple allergies and sensitivities to multiple medications. 6. Chronic anemia of chronic disease, for which the patient has to take Kosher Wine and not iron as she states that iron causes her to have extreme irritation in the stomach. The patient cannot have IV iron either according to her. BRIEF HOSPITAL COURSE: Ms. Thompson is a 56-year-old female with above history, who presented essentially with signs and symptoms as described in history and physical exam. Essentially, she was admitted with urosepsis/UTI. Initially, it was suspected that she may have ESBL E. coli UTI as she has had this in the past. However, urine culture this time came back with E. coli that was sensitive to both Cipro and also cephalosporins. However, as the patient is allergic to both, she had to be on IV aztreonam. For details, please refer above. So far, the patient has been doing really well. She is particular about what medications she takes and she is being given most of her home medications that she is allowed to take while here as they cannot be substituted. Given her multiple allergies and sensitivities, she has to just finish her seven-day course of IV aztreonam before being sent home. This is my interim discharge summary and this patient will be taken over by my colleague on 09/28/2016. SILVERIO/ONI Levon Matos Interim Discharge Summary [address] [address] NAME: FELA THOMPSON : 58 STATUS : ADM IN PAT#: [id number] AGE: 56 ADM/REG DATE : 09/23/16 MR#: [id number] REPORT SERV DATE: 09/27/16 DICTATED BY: LEVON LYNN DATE: 09/27/16 REPORT STATUS : Draft TRANSCRIBED BY: MODL DATE: 09/27/16 Mando Lynn / [id number] CC: Mando Joe M.D.
--- NOTE | ~2016-09-23 | HP ---
History And Physical [id number] [facility] [place]. [address] NAME: FELA THOMPSON : 58 STATUS : ADM IN PAT#: [id number] AGE: 56 ADM/REG DATE : 09/23/16 MR#: [id number] REPORT SERV DATE: 09/23/16 DICTATED BY: REGI QUINONES DATE: 09/23/16 REPORT STATUS : Draft TRANSCRIBED BY: MODL DATE: 09/23/16 DATE OF ADMISSION: 09/23/2016 REASON FOR ADMISSION: Urinary tract infection. HISTORY OF PRESENT ILLNESS: This is a 56-year-old black female with morbid obesity. She presented to the emergency room with an SVT with a heart rate of 160. The SVT awakened her this morning with rapid heartbeat around 3 a.m. She took two diltiazem and Ativan, did not get relief and came to the emergency room. She has been having some dysuria recently and some fever, chills, she believes, and sweats. She has had a history of ESBL urinary tract infection and was hospitalized in June with this. She is followed by Urology with Dr. Rboi Contreras, having placed a stent in her distal ureters for obstruction. Last stent was placed on 07/12/2016. She has a history of cervical cancer in 2008 with excision, followed by chemotherapy and radiation causing some radiation cystitis and recurrent urinary tract infections and possibly some obstructive uropathy. She does have a history of Clostridium difficile colitis as well, and gastroesophageal reflux. PAST MEDICAL HISTORY: She had a right ureteral stent as above. She has intermittent supraventricular tachycardia with history of atrial fibrillation; chronic kidney disease, stage 3. Her creatinine today is down somewhat to 1.75, better than usual. She has COPD, history of hypertension as well. CURRENT HOME MEDICATIONS: Lidoderm patches to the knees bilaterally p.r.n., Cardizem and Ativan for the SVT. She says she is still taking Florastor 250 mg p.o. daily, Flovent 2 puffs twice a day for runny nose. Fluconazole has been discontinued. She takes the Ativan, lidocaine, Flonase 2 puffs two times a day, hydrocodone 10/325 four times a day scheduled, and Phenergan if needed for nausea. She is followed by Dr. Hiro Gilliland in her home, where she is immobile and not able to get out of the house now. SOCIAL HISTORY: She spent about four months in the senior living at [facility] and now is able to transfer from bed to wheelchair, but does not walk any longer. She does not smoke, drink, or use recreational drugs. FAMILY HISTORY: Mother had a history of diabetes. She is , has seizures. ALLERGIES: LISTED DILAUDID, OXYCODONE, DARVON, SUDAFED, CIPRO, PENICILLIN, CEPHALOSPORINS, CARBAPENEMS, SULFA, METHADONE, SHELLFISH, IV CONTRAST, MORPHINE, TETRACYCLINES, FENTANYL, AND TRAMADOL. History And Physical [address] [address] NAME: FELA THOMPSON : 58 STATUS : ADM IN [facility]#: [id number] AGE: 56 ADM/REG DATE : 09/23/16 MR#: [id number] REPORT SERV DATE: 09/23/16 DICTATED BY: REGI QUINONES DATE: 09/23/16 REPORT STATUS : Draft TRANSCRIBED BY: ONI DATE: 09/23/16 REVIEW OF SYSTEMS: She has multiple aches and pains. She has pain in her knees, none in her chest and back. She did have shortness of breath with SVT and some feeling of chills and fever, and flank pain. She had some nausea and vomiting earlier today, but no melena, hematemesis, fits, seizures, convulsions, unilateral weakness, nausea, vomiting, or diarrhea. The remainder of the review of systems is negative. PHYSICAL EXAMINATION: GENERAL: Morbidly obese black female in no acute distress. VITAL SIGNS: Initial blood pressure is 139/96, heart rate of 169, respiratory rate 18, afebrile. Heart rate is now down to 72 with normal sinus rhythm on monitor. HEENT: EOMI. Sclerae clear. Conjunctivae pink. NECK: No bruit. No JVD. CHEST: Covered by huge pendulous breasts actually covering the anterior chest wall. She has a tattoo on the right upper breast. In the lateral position, her superior breast covers the inferior part of the chest wall in the opposite breast. ABDOMEN: Grossly obese. Nontender. There is no landmarks are possibly palpable, large panniculus falling down into the perineal area. EXTREMITIES: Legs are huge. There is no edema. She has Lidoderm patches on both knees bilaterally and said that there was some redness below the Lidoderm patch before she put them on earlier in the hospital here. Distal pulses are intact with dorsalis pedis and posterior tibial. NEUROLOGIC: She does withdraw to plantar stimulation. Fish Cutter is equal and symmetric bilaterally. Coordination intact. She has no tremor. She is symmetric and equal neurologically bilaterally. Coordination is intact. She has no tremor. LYMPHATICS: There is no adenopathy. SKIN: Tattoo. Otherwise unremarkable without lesions noted. LABORATORY DATA: Urinalysis actually does show pyuria, 148 white cells per high-powered field, few white cell clumps, 14 red cells per high-powered field. Specific gravity was 1.004, pH of 6, positive leukocyte, and nitrite. Sodium 137, potassium 3.9, creatinine 1.75 with BUN of 27. GFR 32 mL a minute, magnesium 2.0, troponin less than 0.02. Her white count is 7.9, hemoglobin 10.8, hematocrit 33.5, platelets 284,000. The INR was 1.1. ASSESSMENT: 1. Urinary tract infection. We will culture, but I will go ahead and treat with aztreonam as was before for the ESBL previously. 2. Supraventricular tachycardia. She was treated with p.r.n. medications as above. 3. Morbid obesity. 4. Immobility. 5. History of fracture in the left ankle in the past treated at [facility] for 4 months duration prior to going home for bed bound with transfers to wheelchair level of activity. 6. History of dry eyes. 7. History of chronic obstructive pulmonary disease. She does take some albuterol inhaler at home by [facility], but wants aerosol machine, and we will defer to Dr. Gilliland regarding History And Physical [address] [address] NAME: FELA THOMPSON : 58 STATUS : ADM IN [facility]#: [id number] AGE: 56 ADM/REG DATE : 09/23/16 MR#: [id number] REPORT SERV DATE: 09/23/16 DICTATED BY: REGI QUINONES DATE: 09/23/16 REPORT STATUS : Draft TRANSCRIBED BY: ONI DATE: 09/23/16 that. PLAN: We are going to admit to the hospital, like to treat with IV antibiotics. We may have to send her back to the rehab facility again for the completion of the IV antibiotics. ALFRED/MODL Regi Quinones M.D. / [id number] CC: Mando Call M.D.
--- NOTE | ~2016-09-23 | DS ---
Discharge Summary [facility] [address] [place]. [address] NAME: FELA THOMPSON : 58 STATUS : ADM IN [facility]#: [id number] AGE: 56 ADM/REG DATE : 09/23/16 MR#: [id number] REPORT SERV DATE: 10/04/16 DICTATED BY: MIMI GILLIS DATE: 10/03/16 REPORT STATUS : Draft TRANSCRIBED BY: ONI DATE: 10/03/16 ADMISSION DATE: 09/23/2016 DISCHARGE DATE: 10/03/2016 CONSULTATION: None. INVASIVE PROCEDURE: None. DISCHARGE DIAGNOSES: 1. Urinary tract infection with urine culture positive for Escherichia coli. 2. Chronic obstructive lung disease. 3. Morbid obesity. 4. History of cervical cancer, status post radiation therapy. 5. History of chronic iron deficiency anemia. 6. History of bilateral hydronephrosis, status post renal stent placement. 7. History of chronic kidney disease, stage III. DISCHARGE CONDITION: Stable. HISTORY OF PRESENT ILLNESS: For detailed HPI, please make reference to Dr. Liu's dictation on 09/23/2016. In brief, this is a 56-year-old female with history of morbid obesity; history of bilateral hydronephrosis, status post urinary tract stent placement; chronic kidney disease; recurrent UTI who presented to the hospital with complaints of dysuria, fever, chills, and generalized sweats. In the ER, vitals, blood pressure was 139/96 and heart rate was noted to be 72 beats per minute. LABORATORY DATA: 1. Urinalysis was significant for wbc of 148, leukocyte esterase positive, nitrite positive, and creatinine was 1.75. An assessment of urinary tract infection was made. The patient was started on IV aztreonam. Urine cultures were obtained. Blood cultures were obtained. Urine culture grew E. coli, which was sensitive to aztreonam. The patient has extensive medication allergies, it is extremely difficult to find a p.o. alternative for this patient. Hence, the patient was kept on admission to have IV aztreonam to complete a total of seven days therapy prior to discharge. The patient received IV aztreonam without any significant complication, any allergic reaction. At this time, the patient was advised to continue follow up with primary care physician. 2. Chronic kidney disease. The patient's creatinine during the course of this admission continued to range from a baseline of 2 to 1.7. The patient's creatinine remained stable. At the time of discharge, the patient's creatinine was 2.3. A CT scan without contrast was done that shows that the patient's bilateral stents remains in place with persistent hydronephrosis, which remained unchanged from previous CT. The patient is known to have a baseline creatinine that ranges from approximately 2.3 to 1.7. The patient was advised to continue follow up with primary care physician. 3. Morbid obesity. The patient continues to bring food items from home during the course of admission despite extensive counseling about weight loss and low-calorie diet. Discharge Summary [address] [address] NAME: FELA THOMPSON : 58 STATUS : ADM IN [facility]#: [id number] AGE: 56 ADM/REG DATE : 09/23/16 MR#: [id number] REPORT SERV DATE: 10/04/16 DICTATED BY: MIMI GILLIS DATE: 10/03/16 REPORT STATUS : Draft TRANSCRIBED BY: ONI DATE: 10/03/16 DISCHARGE CONDITION: Stable. DISCHARGE DISPOSITION: Home with family. DICTATED BY: MD FABRIZIO Ramirez/ONI Mimi Gillis MD / [id number] CC: MD Hiro Ramirez M.D.
--- NOTE | ~2016-09-23 | OP ---
Record Of Operation [facility] [address] [place]. [address] NAME: FELA THOMPSON : 58 STATUS : ADM IN PAT#: [id number] AGE: 56 ADM/REG DATE : 09/23/16 MR#: [id number] REPORT SERV DATE: 10/06/16 DICTATED BY: Alexandra CUEVA DATE: 10/05/16 REPORT STATUS : Draft TRANSCRIBED BY: MODL DATE: 10/05/16 DATE OF PROCEDURE: 10/05/2016 PREOPERATIVE DIAGNOSIS: Bilateral ureteral obstruction with bilateral chronic indwelling double-J stents. POSTOPERATIVE DIAGNOSES: 1. Bilateral ureteral obstruction with bilateral chronic indwelling double-J stents. 2. Bladder clot. PROCEDURE: Cystoscopy, removal of right double-J stent, right retrograde pyelogram, placement of right double-J stent, removal of left double-J stent, left retrograde pyelogram, placement of left double-J stent, clot evacuation. SURGEON: Alexandra Cueva M.D. ANESTHESIA: General. COMPLICATIONS: None. DRAINS: 1. Right 7-Tristanian x 22 cm Percuflex Plus double-J stent. 2. Left 7-Tristanian x 22 cm Percuflex Plus double-J stent. BRIEF HISTORY: Ms. Thompson is a 56-year-old black female, well known to me with a history of bilateral radiation-induced ureteral strictures following treatment for cervical cancer. She is chronically infected and requires stent changes at least every two to three months. Her last stent change was on 07/12/2016. She was admitted on 09/23/2016, with an E. coli UTI and was treated with sensitivity-directed antibiotics. Her creatinine went up over the last 48 hours and I was asked to see her yesterday afternoon. We decided to proceed with stent change at this time. The risks of bleeding, infection, anesthesia, injury to adjacent organs, inability to access (inaudible) Performed with a 30-degree lens appeared in a normal position in the bladder. Because of what appeared to be possible left-sided stent obstruction, I decided to change her from bilateral contour stents to a Percuflex Plus double-J stent. I first removed her right stent with a flexible grasper, brought it through the orifice and placed an angled wire through the stent up to the level of the right renal pelvis. The wire was then retrofitted in the cystoscope over a 5-Tristanian open-ended catheter and the catheter was then advanced to the renal pelvis. Clear fluid was obtained, I did not send for any analysis. I then dilutely opacified the right collecting system and placed a 7-Tristanian x 22 cm Percuflex Plus double-J stent which coiled nicely in the renal pelvis and bladder. Later during the clot removal, the stent was pulled down slightly and I had to reposition it with the use of a pusher. I then directed my attention to the left side. A flexible grasper was used to remove up the level of the renal pelvis. We removed the stent with mild difficulty. I then retrofitted the wire in the cystoscope, advanced a 5-Tristanian open-ended Record Of [address] [address] NAME: FELA THOMPSON : 58 STATUS : ADM IN PAT#: [id number] AGE: 56 ADM/REG DATE : 09/23/16 MR#: [id number] REPORT SERV DATE: 10/06/16 DICTATED BY: Alexandra CUEVA DATE: 10/05/16 REPORT STATUS : Draft TRANSCRIBED BY: ONI DATE: 10/05/16 catheter into the collecting system. I then again obtained clear fluid from that side. I placed a 7-Tristanian x 22 cm Percuflex Plus double-J stent which coiled nicely in the left renal pelvis and bladder and after removing the clot as noted above, I terminated the case. I planned to send Ms. Thompson to PACU with the following instructions. DISCHARGE INSTRUCTIONS: If okay with hospitalist she can go home today. I think for her stent, we should plan for stent exchange in two months and proceed as indicated at that time. We will see if the Percuflex Plus stents do better than the contour stents as far as obstruction and her tolerance. MARCELINO/ONI Alexandra Cueva M.D. / [id number] CC: MD Hiro Ramirez M.D.
--- NOTE | ~2016-09-23 | DS ---
Discharge Summary [id number] [facility] [place]. [address] NAME: FELA THOMPSON : 58 STATUS : DIS IN PAT#: [id number] AGE: 56 ADM/REG DATE : 09/23/16 MR#: [id number] REPORT SERV DATE: 10/12/16 DICTATED BY: MIMI GILLIS DATE: 10/08/16 REPORT STATUS : Draft TRANSCRIBED BY: ONI DATE: 10/08/16 ADMISSION DATE: 09/23/2016 DISCHARGE DATE: 10/08/2016 CONSULTATIONS: Urology, Dr. Contreras. INVASIVE PROCEDURES: Cystoscopy, removal of right double-J stent, right retrograde pyelogram, placement of right double-J stent, removal of left double-J stent, left retrograde pyelogram, placement of left double-J stent, and clot evacuation. DISCHARGE DIAGNOSES: 1. Urinary tract infection due to Escherichia coli. 2. Chronic bilateral hydronephrosis, status post J-tube replacement. 3. Chronic kidney disease. 4. Chronic iron deficiency anemia. 5. Morbid obesity. 6. History of cervical cancer, status post history of radiation therapy. 7. Chronic neuropathy. 8. Chronic opioid dependence. DISCHARGE CONDITION: Stable. HISTORY OF PRESENT ILLNESS: For detailed HPI, make reference to Dr. Willi Liu's dictation on 09/23/2016. In brief, this is a 56-year-old female with medical history of morbid obesity, chronic bilateral hydronephrosis with bilateral double-J stent placements, recurrent urinary tract infections, who presented to the emergency room with complaints of palpitations. Was also found to have associated dysuria, fevers and chills, and diaphoresis. PHYSICAL EXAMINATION: VITAL SIGNS: On presentation, blood pressure was 139/96, heart rate of 72 beats per minute with normal sinus rhythm on the monitor, respiratory rate 18. GENERAL: Physical exam was noted for large panniculus. LABORATORY DATA: Urinalysis, positive leukocyte esterase and nitrites. Serum sodium 137, creatinine 1.75, BUN 27, GFR 32. Troponin less than 0.02. White blood cells 7.9. An assessment of urinary tract infection on chronic kidney disease was made in the ER. The patient was admitted to the Hospitalist Service. HOSPITAL COURSE: The patient had a prolonged hospital stay because she continues to require IV antibiotics during the course of this admission. It was noted that the patient's urine culture came back positive for E coli, which was sensitive to aztreonam. The patient declined going home with PICC line to receive IV antibiotics, decided to stay in the hospital to complete a total of seven days' course of IV antibiotics. The patient completed aztreonam during this hospital stay without any allergic reaction or complications. Of Discharge Summary [address] [place]. [address] NAME: FELA THOMPSON : 58 STATUS : DIS IN PAT#: [id number] AGE: 56 ADM/REG DATE : 09/23/16 MR#: [id number] REPORT SERV DATE: 10/12/16 DICTATED BY: MIMI GILLIS DATE: 10/08/16 REPORT STATUS : Draft TRANSCRIBED BY: ONI DATE: 10/08/16 note, the patient has extensive allergy histories to multiple medications (please make reference to patient's allergies list for detail allergic reactions to medications). Chronic bilateral hydronephrosis, status post double-J stent replacement. The patient complained of left flank pain. Had a CT of the abdomen during the course of this admission that shows persistent bilateral hydronephrosis. The patient's urologist was consulted and noted that the size of the hydronephrosis remains stable as compared to the previous CT. However, the patients usually have J stents replaced every two months. The last time the patient's stent was replaced was 06/2016, hence the patient was due for the J stent to be replaced. The patient's chest double-J stent was replaced during this admission without any complications. Chronic kidney disease. The patient's creatinine baseline is between 1.75 and 2.2. The patient's creatinine remained within confines of baseline, although the patient's creatinine peaked during this admission at 2.49. The patient refused to follow up, insisted that she wanted her creatinine to trend back to 2.06 prior to discharge. The patient's discharge was held multiple times. The patient continued on IV fluids. At the time of discharge, the patient's creatinine returned back to baseline of 2.06. The patient was advised to continue to follow up with primary care physician, urologist, and sales and leasing agent as an outpatient. DISCHARGE MEDICATIONS: 1. Diltiazem 60 mg p.o. t.i.d. 2. Lorazepam 2 mg p.o. daily. 3. Albuterol one puff p.r.n. DISCHARGE DISPOSITION: Home. DISCHARGE ACTIVITIES: As tolerated. DISCHARGE FOLLOWUP: 1. Follow up with primary care physician. 2. Follow up with urologist as an outpatient. 3. Continue follow up with sales and leasing agent. DICTATED BY: MD FABRIZIO Ramirez/ONI Mimi Gillis MD / [id number] CC: Discharge Summary [address] [address] NAME: FELA THOMPSON : 58 STATUS : DIS IN PAT#: [id number] AGE: 56 ADM/REG DATE : 09/23/16 MR#: [id number] REPORT SERV DATE: 10/12/16 DICTATED BY: MIMI GILLIS DATE: 10/08/16 REPORT STATUS : Draft TRANSCRIBED BY: ONI DATE: 10/08/16 MD Hiro Ramirez M.D. J. Patrick Dilworth, M.D. David Bosshardt, M.D.
--- NOTE | ~2016-09-23 | CN ---
Consultation Report [facility] [address] [place]. [address] NAME: FELA THOMPSON : 58 STATUS : ADM IN PAT#: [id number] AGE: 56 ADM/REG DATE : 09/23/16 MR#: [id number] REPORT SERV DATE: 10/05/16 DICTATED BY: Alexandra CUEVA DATE: 10/05/16 REPORT STATUS : Draft TRANSCRIBED BY: MODL DATE: 10/05/16 CONSULTATION NOTE DATE OF CONSULTATION: 10/04/2016 CHIEF COMPLAINT: Chronic bilateral ureteral obstruction with indwelling double-J stents, urinary tract infection. HISTORY OF PRESENT ILLNESS: Ms. Thompson is a 56-year-old black female, well known to me, with a history of bilateral ureteral obstruction, due to radiation therapy induced strictures following treatment for cervical cancer. She has been managed with indwelling double-J stent for several years now. Her last stent exchange was on 07/12/2016. It is noted that she is chronically infected and often has pyonephrosis. At any rate, she was admitted on 09/23/2016, with an evidence of urinary tract infection. Her culture grew E coli, and she has been treated with aztreonam. It was noted in the last several days that her creatinine is elevated from its baseline about 1.8 to 2.49, and it is now 2.35. She is complaining of some left sided flank pain and has some intermittent complaints of abdominal pain that seemed to respond to fluids. I was asked to see her today. PAST MEDICAL HISTORY: 1. Cervical cancer, status post surgery with chemotherapy and radiation to bilateral ureteral strictures managed with bilateral stents. 2. Peripheral neuropathy. 3. Vertigo. 4. Atrial fibrillation. 5. Osteoarthritis. 6. COPD/asthma. 7. Recurrent UTIs. 8. Morbid obesity with functional paraplegia. 9. Remote C diff. 10.CKD. PAST SURGICAL HISTORY: 1. Unknown cervical cancer surgery. 2. Cholecystectomy. 3. Ear surgery. 4. Left leg surgery. 5. Multiple bilateral stent exchanges, last on 07/12/2016. HOME MEDICATIONS: Albuterol, biotin, diltiazem, fluticasone, lidocaine, lorazepam, miconazole, multivitamins, eyedrops, hydrocodone, and cortisone. ALLERGIES: ARE MULTIPLE AND INCLUDE HYDROMORPHONE, OXYCODONE, PROPOXYPHENE, PSEUDOEPHEDRINE, CIPROFLOXACIN, PENICILLIN, CEPHALOSPORINS, CARBAPENEMS, SULFA, SHELLFISH, IODINE, Consultation Report [place] [address]. [address] NAME: FELA THOMPSON : 58 STATUS : ADM IN PAT#: [id number] AGE: 56 ADM/REG DATE : 09/23/16 MR#: [id number] REPORT SERV DATE: 10/05/16 DICTATED BY: Alexandra CUEVA DATE: 10/05/16 REPORT STATUS : Draft TRANSCRIBED BY: ONI DATE: 10/05/16 HYDROXYZINE, MORPHINE, ACETAMINOPHEN, TETRACYCLINE, FENTANYL, TRAMADOL, DEXTROMETHORPHAN, METHADONE, DIPHENHYDRAMINE. IT SHOULD BE NOTED THAT SHE ENDS UP TAKING SOME OF THESE MEDICINES WITH HER OTHER MEDICINES, BUT THIS IS THE LIST THAT SHE GIVES US. REVIEW OF SYSTEMS: Full 12-point review of systems was negative except as noted above. PHYSICAL EXAMINATION: GENERAL: Morbidly obese, 56-year-old black female, currently in no distress. She complains of some mild left flank pain. VITAL SIGNS: T-max is 97. CHEST: No respiratory distress. HEART: Regular rate and rhythm. ABDOMEN: Protuberant, nontender, and nondistended. No CVA tenderness. EXTREMITIES: No peripheral edema. The patient is not ambulatory. PERTINENT LABORATORY: Creatinine today 2.35, hemoglobin 9.2, white count 6.0. CT scan from 10/03/2016, shows her stents to be in good position, with persistent left hydronephrosis, with interval resolution of right hydronephrosis. IMPRESSION: 1. Escherichia coli urinary tract infection on sensitivity-directed antibiotics. 2. Bilateral ureteral obstruction with bilateral indwelling double-J stents. PLAN: 1. We continue her IV antibiotics today. 2. We will make her n.p.o. after midnight and plan bilateral stent exchange on 10/05/2016. As I have discussed with her in the past, it would probably be better to do this electively every two to three months, but her compliance with that has been intermittently best. As always there is a risk that we would not be able to place stents due to her overall pelvic situation, but we discussed that in the past as well. MARCELINO/MODL Alexandra Cueva M.D. / [id number] CC: MD Hiro Ramirez M.D.
[2016-09-23 10:11] LABS: BASOPHILS 0.4 %; BASOPHILS ABSOLUTE 0.03 10/3/uL (0.0-0.16); EOSINOPHILS 4.7 %; EOSINOPHILS ABSOLUTE 0.37 10/3/uL (0.0-0.53); HEMATOCRIT 33.5 % (36.0-48.0); HEMOGLOBIN 10.8 g/dL (12.0-16.0); IMMATURE GRANULOCYTES 0.1 %; IMMATURE GRANULOCYTES ABSOLUTE 0.01 10/3/uL (0.0-0.11); LYMPHOCYTES ABSOLUTE 2.53 10/3/uL (0.67-4.30); MEAN CORPUS HGB CONC 32.2 g/dL (32.0-36.0); MEAN CORPUSCULAR HEMOGLOB 29.8 pg (26.0-34.0); MEAN CORPUSCULAR VOLUME 92.5 fL (80-100); MEAN PLATELET VOLUME 9.6 fL (9.2-13.0); MONOCYTES 4.9 %; MONOCYTES ABSOLUTE 0.39 10/3/uL (0.21-1.20); NEUTROPHILS 57.9 %; NEUTROPHILS ABSOLUTE 4.58 10/3/uL (2.02-8.40); PLATELET COUNT 284 10/3/uL (150-400); RBC DISTRIBUTION WIDTH 14.2 % (12.0-16.0); RED CELL COUNT 3.62 10/6/uL (4.0-5.6); WHITE BLOOD CELLS 7.9 10/3/uL (4.5-10.5)
[2016-09-23 10:12] LABS: MANUAL DIFF NO %
[2016-09-23 10:18] LABS: INTERNATIONAL NORMAL RATI 1.1 UNITS (-); PARTIAL THROMBO TIME 33.9 SEC (22.5-37.2); PROTIME (NOT ORD) 13.8 SEC (12.0-14.5)
[2016-09-23 10:27] LABS: CALCIUM, SERUM 8.7 MG/DL (8.5-10.4); CHEST PAIN PROFILE TAT 0 Hrs 22 Mins; CHLORIDE, SERUM 106 MMOL/L (96-112); CO2 (CARBON DIOXIDE) 26 MMOL/L (24-34); CREATININE 1.75 MG/DL (0.55-1.02); GFR AFRICAN AMERICAN 37 ML/MIN (>=60); GFR NON AFRICAN AMERICAN 32 ML/MIN (>=60); POTASSIUM, SERUM 3.9 MMOL/L (3.5-5.3); SODIUM, SERUM 137 MMOL/L (135-148); TROPONIN I <0.02 NG/ML (<0.05)
[2016-09-23 10:28] LABS: BUN (BLOOD UREA NITROGEN) 27 MG/DL (6-23); GLUCOSE, SERUM 114 MG/DL (60-99)
[2016-09-23 13:45] LABS: BILIRUBIN, URINE NEGATIVE (NEG); ER URINALYSIS TAT 0 Hrs 14 Mins; KETONE, URINE NEGATIVE (NEG); LEUKOCYTE ESTERASE(NOT OR LARGE (NEG); NITRITE (URINE) POS (NEG); WBC (NOT ORDERED) (RFLEX) 148 (0-5)
[2016-09-23 13:46] LABS: ASCORBIC ACID (UR NOT ORDER) NEG (NEG)
[2016-09-23] MEDS ORDERED: PROVHFA INH (14:26)
[2016-09-23] MEDS ORDERED: ALOE VESTA EX ×2 (14:30→14:45)
[2016-09-23] MEDS ORDERED: CLEAR EYE1 OPH (14:34)
[2016-09-23] MEDS ORDERED: CORTIZONE TOP (14:43)
[2016-09-23] MEDS ORDERED: [UNRECOGNIZED DRUG - OTHER] PO (14:48)
[2016-09-25 05:37] LABS: BASOPHILS 0.4 %; BASOPHILS ABSOLUTE 0.02 10/3/uL (0.0-0.16); EOSINOPHILS 7.3 %; EOSINOPHILS ABSOLUTE 0.33 10/3/uL (0.0-0.53); HEMOGLOBIN 9.2 g/dL (12.0-16.0); IMMATURE GRANULOCYTES 0.2 %; IMMATURE GRANULOCYTES ABSOLUTE 0.01 10/3/uL (0.0-0.11); LYMPHOCYTES ABSOLUTE 2.17 10/3/uL (0.67-4.30); MEAN CORPUS HGB CONC 31.6 g/dL (32.0-36.0); MEAN CORPUSCULAR VOLUME 94.8 fL (80-100); MEAN PLATELET VOLUME 8.9 fL (9.2-13.0); MONOCYTES 6.6 %; NEUTROPHILS 37.5 %; NEUTROPHILS ABSOLUTE 1.69 10/3/uL (2.02-8.40); PLATELET COUNT 219 10/3/uL (150-400); RBC DISTRIBUTION WIDTH 14.7 % (12.0-16.0); RED CELL COUNT 3.07 10/6/uL (4.0-5.6)
[2016-09-25 05:38] LABS: HEMATOCRIT 29.1 % (36.0-48.0); MANUAL DIFF NO %; WHITE BLOOD CELLS 4.5 10/3/uL (4.5-10.5)
[2016-09-25 05:49] LABS: CHLORIDE, SERUM 111 MMOL/L (96-112); CO2 (CARBON DIOXIDE) 27 MMOL/L (24-34); CREATININE 2.03 MG/DL (0.55-1.02); GFR AFRICAN AMERICAN 31 ML/MIN (>=60); GFR NON AFRICAN AMERICAN 27 ML/MIN (>=60); GLUCOSE, SERUM 97 MG/DL (60-99); POTASSIUM, SERUM 4.3 MMOL/L (3.5-5.3); SODIUM, SERUM 142 MMOL/L (135-148)
[2016-09-25 05:50] LABS: BUN (BLOOD UREA NITROGEN) 31 MG/DL (6-23)
[2016-09-26 05:18] LABS: BASOPHILS 0.8 %; BASOPHILS ABSOLUTE 0.04 10/3/uL (0.0-0.16); EOSINOPHILS 5.3 %; EOSINOPHILS ABSOLUTE 0.28 10/3/uL (0.0-0.53); HEMATOCRIT 29.1 % (36.0-48.0); HEMOGLOBIN 9.1 g/dL (12.0-16.0); IMMATURE GRANULOCYTES 0.2 %; IMMATURE GRANULOCYTES ABSOLUTE 0.01 10/3/uL (0.0-0.11); LYMPHOCYTES ABSOLUTE 2.11 10/3/uL (0.67-4.30); MEAN CORPUS HGB CONC 31.3 g/dL (32.0-36.0); MEAN PLATELET VOLUME 9.6 fL (9.2-13.0); MONOCYTES 7.8 %; MONOCYTES ABSOLUTE 0.41 10/3/uL (0.21-1.20); NEUTROPHILS 45.9 %; NEUTROPHILS ABSOLUTE 2.43 10/3/uL (2.02-8.40); PLATELET COUNT 247 10/3/uL (150-400); RBC DISTRIBUTION WIDTH 14.7 % (12.0-16.0); RED CELL COUNT 3.03 10/6/uL (4.0-5.6); WHITE BLOOD CELLS 5.3 10/3/uL (4.5-10.5)
[2016-09-26 05:20] LABS: MANUAL DIFF NO %
[2016-09-26 05:25] LABS: CALCIUM, SERUM 8.5 MG/DL (8.5-10.4); CHLORIDE, SERUM 110 MMOL/L (96-112); CO2 (CARBON DIOXIDE) 25 MMOL/L (24-34); CREATININE 1.94 MG/DL (0.55-1.02); GFR AFRICAN AMERICAN 33 ML/MIN (>=60); GFR NON AFRICAN AMERICAN 28 ML/MIN (>=60); GLUCOSE, SERUM 93 MG/DL (60-99); POTASSIUM, SERUM 4.6 MMOL/L (3.5-5.3); SODIUM, SERUM 142 MMOL/L (135-148)
[2016-09-26 05:27] LABS: BUN (BLOOD UREA NITROGEN) 35 MG/DL (6-23)
[2016-09-28 09:36] LABS: BASOPHILS 0.4 %; BASOPHILS ABSOLUTE 0.02 10/3/uL (0.0-0.16); EOSINOPHILS ABSOLUTE 0.33 10/3/uL (0.0-0.53); HEMATOCRIT 29.7 % (36.0-48.0); HEMOGLOBIN 9.3 g/dL (12.0-16.0); IMMATURE GRANULOCYTES 0.2 %; IMMATURE GRANULOCYTES ABSOLUTE 0.01 10/3/uL (0.0-0.11); LYMPHOCYTES 28.8 %; LYMPHOCYTES ABSOLUTE 1.58 10/3/uL (0.67-4.30); MEAN CORPUS HGB CONC 31.3 g/dL (32.0-36.0); MEAN CORPUSCULAR HEMOGLOB 29.8 pg (26.0-34.0); MEAN CORPUSCULAR VOLUME 95.2 fL (80-100); MEAN PLATELET VOLUME 9.5 fL (9.2-13.0); MONOCYTES 5.1 %; MONOCYTES ABSOLUTE 0.28 10/3/uL (0.21-1.20); NEUTROPHILS 59.5 %; NEUTROPHILS ABSOLUTE 3.27 10/3/uL (2.02-8.40); PLATELET COUNT 237 10/3/uL (150-400); RED CELL COUNT 3.12 10/6/uL (4.0-5.6); WHITE BLOOD CELLS 5.5 10/3/uL (4.5-10.5)
[2016-09-28 09:37] LABS: MANUAL DIFF NO %
[2016-09-28 09:49] LABS: BUN (BLOOD UREA NITROGEN) 32 MG/DL (6-23); CALCIUM, SERUM 8.3 MG/DL (8.5-10.4); CHLORIDE, SERUM 111 MMOL/L (96-112); CO2 (CARBON DIOXIDE) 29 MMOL/L (24-34); CREATININE 1.85 MG/DL (0.55-1.02); GFR AFRICAN AMERICAN 34 ML/MIN (>=60); GFR NON AFRICAN AMERICAN 30 ML/MIN (>=60); GLUCOSE, SERUM 87 MG/DL (60-99); POTASSIUM, SERUM 4.5 MMOL/L (3.5-5.3); SODIUM, SERUM 142 MMOL/L (135-148)
[2016-09-30 10:29] LABS: BASOPHILS 0.4 %; BASOPHILS ABSOLUTE 0.02 10/3/uL (0.0-0.16); EOSINOPHILS 5.3 %; EOSINOPHILS ABSOLUTE 0.29 10/3/uL (0.0-0.53); HEMATOCRIT 31.3 % (36.0-48.0); HEMOGLOBIN 9.3 g/dL (12.0-16.0); IMMATURE GRANULOCYTES 0.2 %; IMMATURE GRANULOCYTES ABSOLUTE 0.01 10/3/uL (0.0-0.11); LYMPHOCYTES 32.2 %; LYMPHOCYTES ABSOLUTE 1.77 10/3/uL (0.67-4.30); MEAN CORPUSCULAR HEMOGLOB 27.9 pg (26.0-34.0); MEAN PLATELET VOLUME 9.6 fL (9.2-13.0); MONOCYTES 6.9 %; MONOCYTES ABSOLUTE 0.38 10/3/uL (0.21-1.20); NEUTROPHILS ABSOLUTE 3.02 10/3/uL (2.02-8.40); PLATELET COUNT 211 10/3/uL (150-400); RBC DISTRIBUTION WIDTH 14.9 % (12.0-16.0); RED CELL COUNT 3.33 10/6/uL (4.0-5.6); WHITE BLOOD CELLS 5.5 10/3/uL (4.5-10.5)
[2016-09-30 10:30] LABS: MANUAL DIFF NO %; MEAN CORPUS HGB CONC 29.7 g/dL (32.0-36.0)
[2016-09-30 10:33] LABS: BUN (BLOOD UREA NITROGEN) 35 MG/DL (6-23); CALCIUM, SERUM 8.4 MG/DL (8.5-10.4); CHLORIDE, SERUM 108 MMOL/L (96-112); CO2 (CARBON DIOXIDE) 25 MMOL/L (24-34); GFR AFRICAN AMERICAN 36 ML/MIN (>=60); GFR NON AFRICAN AMERICAN 31 ML/MIN (>=60); GLUCOSE, SERUM 78 MG/DL (60-99); POTASSIUM, SERUM 4.7 MMOL/L (3.5-5.3); SODIUM, SERUM 139 MMOL/L (135-148)
[2016-10-03 06:59] LABS: BASOPHILS 0.3 %; BASOPHILS ABSOLUTE 0.02 10/3/uL (0.0-0.16); EOSINOPHILS ABSOLUTE 0.18 10/3/uL (0.0-0.53); HEMATOCRIT 28.7 % (36.0-48.0); HEMOGLOBIN 9.2 g/dL (12.0-16.0); LYMPHOCYTES 23.3 %; MEAN CORPUSCULAR HEMOGLOB 29.8 pg (26.0-34.0); MEAN CORPUSCULAR VOLUME 92.9 fL (80-100); MEAN PLATELET VOLUME 8.8 fL (9.2-13.0); MONOCYTES ABSOLUTE 0.36 10/3/uL (0.21-1.20); NEUTROPHILS 67.4 %; NEUTROPHILS ABSOLUTE 4.06 10/3/uL (2.02-8.40); PLATELET COUNT 202 10/3/uL (150-400); RBC DISTRIBUTION WIDTH 14.8 % (12.0-16.0); RED CELL COUNT 3.09 10/6/uL (4.0-5.6)
[2016-10-03 07:02] LABS: MANUAL DIFF NO %; MEAN CORPUS HGB CONC 32.1 g/dL (32.0-36.0)
[2016-10-03 07:11] LABS: BUN (BLOOD UREA NITROGEN) 34 MG/DL (6-23); CALCIUM, SERUM 8.3 MG/DL (8.5-10.4); CHLORIDE, SERUM 106 MMOL/L (96-112); CO2 (CARBON DIOXIDE) 28 MMOL/L (24-34); GFR AFRICAN AMERICAN 26 ML/MIN (>=60); GFR NON AFRICAN AMERICAN 22 ML/MIN (>=60); GLUCOSE, SERUM 92 MG/DL (60-99); PHOSPHORUS, SERUM 3.5 MG/DL (2.5-4.5); POTASSIUM, SERUM 4.7 MMOL/L (3.5-5.3); SODIUM, SERUM 139 MMOL/L (135-148)
[2016-10-03 07:12] LABS: CREATININE 2.35 MG/DL (0.55-1.02)
[2016-10-03 21:00] LABS: BUN (BLOOD UREA NITROGEN) 34 MG/DL (6-23); CHLORIDE, SERUM 111 MMOL/L (96-112); CO2 (CARBON DIOXIDE) 21 MMOL/L (24-34); CREATININE 2.49 MG/DL (0.55-1.02); GFR AFRICAN AMERICAN 24 ML/MIN (>=60); GFR NON AFRICAN AMERICAN 21 ML/MIN (>=60); GLUCOSE, SERUM 133 MG/DL (60-99); POTASSIUM, SERUM 4.9 MMOL/L (3.5-5.3); SODIUM, SERUM 138 MMOL/L (135-148)
[2016-10-04 09:59] LABS: BUN (BLOOD UREA NITROGEN) 34 MG/DL (6-23); CALCIUM, SERUM 8.1 MG/DL (8.5-10.4); CHLORIDE, SERUM 109 MMOL/L (96-112); CO2 (CARBON DIOXIDE) 25 MMOL/L (24-34); CREATININE 2.35 MG/DL (0.55-1.02); GFR AFRICAN AMERICAN 26 ML/MIN (>=60); GFR NON AFRICAN AMERICAN 22 ML/MIN (>=60); POTASSIUM, SERUM 5.1 MMOL/L (3.5-5.3); SODIUM, SERUM 140 MMOL/L (135-148)
[2016-10-04 10:00] LABS: GLUCOSE, SERUM 97 MG/DL (60-99)
[2016-10-04 12:08] LABS: BASOPHILS 0.3 %; BASOPHILS ABSOLUTE 0.02 10/3/uL (0.0-0.16); EOSINOPHILS 2.6 %; HEMATOCRIT 27.7 % (36.0-48.0); IMMATURE GRANULOCYTES 0.3 %; IMMATURE GRANULOCYTES ABSOLUTE 0.02 10/3/uL (0.0-0.11); LYMPHOCYTES 20.7 %; LYMPHOCYTES ABSOLUTE 1.58 10/3/uL (0.67-4.30); MEAN CORPUS HGB CONC 32.5 g/dL (32.0-36.0); MEAN CORPUSCULAR HEMOGLOB 30.2 pg (26.0-34.0); MEAN PLATELET VOLUME 9.5 fL (9.2-13.0); MONOCYTES 7.7 %; MONOCYTES ABSOLUTE 0.59 10/3/uL (0.21-1.20); NEUTROPHILS 68.4 %; NEUTROPHILS ABSOLUTE 5.23 10/3/uL (2.02-8.40); PLATELET COUNT 237 10/3/uL (150-400); RBC DISTRIBUTION WIDTH 14.8 % (12.0-16.0); RED CELL COUNT 2.98 10/6/uL (4.0-5.6); WHITE BLOOD CELLS 7.6 10/3/uL (4.5-10.5)
[2016-10-04 12:10] LABS: MANUAL DIFF NO %
[2016-10-05 09:12] LABS: ALBUMIN 2.3 G/DL (3.5-5.0); BUN (BLOOD UREA NITROGEN) 28 MG/DL (6-23); CALCIUM, SERUM 8.6 MG/DL (8.5-10.4); CHLORIDE, SERUM 108 MMOL/L (96-112); CO2 (CARBON DIOXIDE) 27 MMOL/L (24-34); CREATININE 2.29 MG/DL (0.55-1.02); DIRECT BILIRUBIN < 0.1 MG/DL (0.0-0.4); GFR AFRICAN AMERICAN 27 ML/MIN (>=60); GFR NON AFRICAN AMERICAN 23 ML/MIN (>=60); GLUCOSE, SERUM 93 MG/DL (60-99); INDIRECT BILIRUBIN(NOT ORDER) 0.2 MG/DL (0.1-0.9); POTASSIUM, SERUM 4.7 MMOL/L (3.5-5.3); SGOT(AST) 12 U/L (5-40); SGPT(ALT) 9 U/L (5-65); SODIUM, SERUM 141 MMOL/L (135-148); TOTAL BILIRUBIN 0.3 MG/DL (0-1.2); TOTAL PROTEIN 7.5 G/DL (6.0-8.5)
[2016-10-05 09:13] LABS: ALKALINE PHOSPHATASE 71 U/L (45-117)
[2016-10-06 09:04] LABS: BASOPHILS 0.6 %; BASOPHILS ABSOLUTE 0.04 10/3/uL (0.0-0.16); EOSINOPHILS 5.2 %; EOSINOPHILS ABSOLUTE 0.36 10/3/uL (0.0-0.53); HEMATOCRIT 28.6 % (36.0-48.0); HEMOGLOBIN 8.8 g/dL (12.0-16.0); IMMATURE GRANULOCYTES 0.1 %; IMMATURE GRANULOCYTES ABSOLUTE 0.01 10/3/uL (0.0-0.11); LYMPHOCYTES 25.5 %; LYMPHOCYTES ABSOLUTE 1.78 10/3/uL (0.67-4.30); MEAN CORPUSCULAR HEMOGLOB 29.5 pg (26.0-34.0); MEAN PLATELET VOLUME 9.6 fL (9.2-13.0); MONOCYTES 9.6 %; MONOCYTES ABSOLUTE 0.67 10/3/uL (0.21-1.20); NEUTROPHILS ABSOLUTE 4.12 10/3/uL (2.02-8.40); PLATELET COUNT 229 10/3/uL (150-400); RBC DISTRIBUTION WIDTH 14.5 % (12.0-16.0); RED CELL COUNT 2.98 10/6/uL (4.0-5.6)
[2016-10-06 09:06] LABS: MANUAL DIFF NO %; MEAN CORPUS HGB CONC 30.8 g/dL (32.0-36.0)
[2016-10-06 09:10] LABS: BUN (BLOOD UREA NITROGEN) 25 MG/DL (6-23); CALCIUM, SERUM 8.2 MG/DL (8.5-10.4); CHLORIDE, SERUM 110 MMOL/L (96-112); CO2 (CARBON DIOXIDE) 23 MMOL/L (24-34); GFR AFRICAN AMERICAN 28 ML/MIN (>=60); GFR NON AFRICAN AMERICAN 24 ML/MIN (>=60); GLUCOSE, SERUM 91 MG/DL (60-99); POTASSIUM, SERUM 4.5 MMOL/L (3.5-5.3); SODIUM, SERUM 140 MMOL/L (135-148)
[2016-10-06 16:53] LABS: BUN (BLOOD UREA NITROGEN) 25 MG/DL (6-23); CALCIUM, SERUM 8.2 MG/DL (8.5-10.4); CHLORIDE, SERUM 110 MMOL/L (96-112); CO2 (CARBON DIOXIDE) 30 MMOL/L (24-34); CREATININE 2.35 MG/DL (0.55-1.02); GFR AFRICAN AMERICAN 26 ML/MIN (>=60); GFR NON AFRICAN AMERICAN 22 ML/MIN (>=60); GLUCOSE, SERUM 95 MG/DL (60-99); POTASSIUM, SERUM 4.4 MMOL/L (3.5-5.3); SODIUM, SERUM 136 MMOL/L (135-148)
[2016-10-08 09:45] LABS: CALCIUM, SERUM 8.2 MG/DL (8.5-10.4); CHLORIDE, SERUM 108 MMOL/L (96-112); CO2 (CARBON DIOXIDE) 28 MMOL/L (24-34); CREATININE 2.06 MG/DL (0.55-1.02); GFR AFRICAN AMERICAN 30 ML/MIN (>=60); GFR NON AFRICAN AMERICAN 26 ML/MIN (>=60); GLUCOSE, SERUM 77 MG/DL (60-99); POTASSIUM, SERUM 4.6 MMOL/L (3.5-5.3); SODIUM, SERUM 142 MMOL/L (135-148)
[2016-10-08 09:46] LABS: BUN (BLOOD UREA NITROGEN) 21 MG/DL (6-23)
[2016-10-08] MEDS ORDERED: PROTONIX PO (11:47)
== END 2016-10-08 13:28 | disposition home or self-care (01) | DRG 690 ==
LOC: ER 09:10 → 7NO 14:53
PROVIDERS: Emergency Medicine; Hospitalist
PROC: 0T788DZ Dilation of Bilateral Ureters with Intraluminal Device, Via Natural or Artificial Opening Endoscopic (ICD-10-PCS; 2016-10-05)
PROC: BT141ZZ Fluoroscopy of Kidneys, Ureters and Bladder using Low Osmolar Contrast (ICD-10-PCS; 2016-10-05)
PROC: 0TCB8ZZ Extirpation of Matter from Bladder, Via Natural or Artificial Opening Endoscopic (ICD-10-PCS; 2016-10-05)
PROC: 0TP98DZ Removal of Intraluminal Device from Ureter, Via Natural or Artificial Opening Endoscopic (ICD-10-PCS; principal; 2016-10-05 12:45)
DX: N13.6 Pyonephrosis (principal); I47.1 Supraventricular tachycardia; Z68.41 Body mass index [BMI] 40.0-44.9, adult; N17.9 Acute kidney failure, unspecified; G62.9 Polyneuropathy, unspecified; N18.3 Chronic kidney disease, stage 3 (moderate); F11.20 Opioid dependence, uncomplicated; N30.40 Irradiation cystitis without hematuria; I12.9 Hypertensive chronic kidney disease with stage 1 through stage 4 chronic kidney disease, or unspecified chronic kidney disease; I48.91 Unspecified atrial fibrillation; N32.89 Other specified disorders of bladder; J44.9 Chronic obstructive pulmonary disease, unspecified; E66.01 Morbid (severe) obesity due to excess calories; D63.8 Anemia in other chronic diseases classified elsewhere; B96.20 Unspecified Escherichia coli [E. coli] as the cause of diseases classified elsewhere; K21.9 Gastro-esophageal reflux disease without esophagitis; Y84.2 Radiological procedure and radiotherapy as the cause of abnormal reaction of the patient, or of later complication, without mention of misadventure at the time of the procedure; G89.4 Chronic pain syndrome; Z83.3 Family history of diabetes mellitus; Z88.1 Allergy status to other antibiotic agents; Z99.3 Dependence on wheelchair; Z92.21 Personal history of antineoplastic chemotherapy; Z92.3 Personal history of irradiation; Z85.41 Personal history of malignant neoplasm of cervix uteri; Z87.440 Personal history of urinary (tract) infections; Z88.0 Allergy status to penicillin; Z91.013 Allergy to seafood; Z88.8 Allergy status to other drugs, medicaments and biological substances; Z88.5 Allergy status to narcotic agent; Z91.041 Radiographic dye allergy status; Z90.49 Acquired absence of other specified parts of digestive tract
CPT/HCPCS: 74176; 74420; 80048; 80069; 80076; 81001; 83735; 83880; 84100; 84484; 85025; 85610; 85730; 87077; 87086; 87186; 93005; 96374; 97110-GP; 97162-GP; 97166-GO; 97530-GP; 99285; A9270-GY; C1758; C1769; C2617; G8978-CL-GP; G8979-CK-GP; G8987-CK-GO; G8988-CK-GO; G8989-CK-GO; J0456; J2250; J2550; J3010; Q9967